=== PATIENT | male | born 1965 | race Caucasian/White ===

== ENCOUNTER 2017-09-05 14:02 | Emergency (ER) | payer BC ==
[~2017-09-05] VITALS: Ht 172.7 cm; Wt 74.8 kg
--- OUTSIDE RECORDS SUMMARY | ~2017-09-05 | XMS | Encounter Summary ---
Demographics + + + | Address | [address] | | | [place] [address] | + + + | Home Phone | | + + + | Preferred Language | Unknown | + + + | Marital Status | | + + + | Presybeterian Affiliation | 1069 | + + + | Race | Unknown | + + + | Ethnic Group | Unknown | + + + Author + + + | Author | [facility] | | | and [place] | + + + | Organization | [facility] | | | and [place] | + + + | Address | Unknown | + + + | Phone | Unavailable | + + + Support + + +---------+ + | Name | Relationship | Address | Phone | + + +---------+ + | ,Joslny | ECON | Unknown | | + + +---------+ + Care Team Providers + +------+ + | Care Diamond Setter Apprentice Name | Role | Phone | + +------+ + | Charly Carrillo MD | PCP | | + +------+ + Encounter Details +--------+ + + + + | Date | Type | Department | Care Team | Description | +--------+ + + + + | 07/07/ | Orders Only | [facility] | Kain Lindo MD | Lumbar radiculopathy | | 2018 | | [address]UR[address]UR[address]ERY [address] | [address] | (Primary Dx); DDD | | | | [address] | [address] [place], [place] | (degenerative disc | | | | [place], [place] | [address] | disease), lumbar, | | | | [address] | | L3-L4,L5-S1; Lumbar | | | | [phone] | | pars defect at L5 | | | | | | bilaterally; | | | | | | Spondylolisthesis of | | | | | | lumbar region; | | | | | | Facet arthritis of | | | | | | lumbar region (HCC); | | | | | | Foraminal stenosis | | | | | | of lumbar region | +--------+ + + + + Social History + +-------+ +--------+------+ | Tobacco Use | Types | Packs/Day | Years | Date | | | | | Used | | + +-------+ +--------+------+ | Former Smoker | | | | | + +-------+ +--------+------+ + +---+---+---+ | Smokeless Tobacco: | | | | | Never Used | | | | + +---+---+---+ + + +---------+ + | Alcohol Use | Drinks/We | oz/Week | Comments | | | ek | | | + + +---------+ + | Yes | | | social | + + +---------+ + + + + | Sex Assigned at | Date Recorded | | | | + + + | Not on file | | + + + as of this encounter Plan of Treatment +--------+ + + + + | Date | Type | Specialty | Care Team | Description | +--------+ + + + + | 09/08/ | Surgery | | Kain Lindo MD | L4-5, L5-S1 ALIF w/ | | 2017 | | | [address] | Posterior Fusion at | | | | | [address] [place], [place] | L4-5, L5-S1 | | | | | [address] | | | | | | | | +--------+ + + + + | 09/08/ | Procedure | | | | | 2017 | Pass | | | | +--------+ + + + + | 09/08/ | Hospital | | Kain Lindo MD | | | 2017 | Encounter | | [address] | | | | | | [address] [place] | | | | | | [address] | | | | | | | | +--------+ + + + + as of this encounter Visit Diagnoses + + | Diagnosis | + + | Lumbar radiculopathy - Primary | + + | Thoracic or lumbosacral neuritis or radiculitis, unspecified | + + | DDD (degenerative disc disease), lumbar, L3-L4,L5-S1 | + + | Degeneration of lumbar or lumbosacral intervertebral disc | + + | Lumbar pars defect at L5 bilaterally | + + | Acquired spondylolisthesis | + + | Spondylolisthesis of lumbar region | + + | Acquired spondylolisthesis | + + | Facet arthritis of lumbar region (HCC) | + + | Lumbosacral spondylosis without myelopathy | + + | Foraminal stenosis of lumbar region | + + | Spinal stenosis, lumbar region, without neurogenic claudication | + +"
--- OUTSIDE RECORDS SUMMARY | ~2017-09-05 | XMS | Encounter Summary ---
Demographics + + + | Address | [address] | | | [place] [address] | + + + | Home Phone [...] Organization | [facility] | | | and [place] | + + + | Address | Unknown | + + + | Phone | Unavailable | + + + Support + + +---------+ + | Name | Relationship | Address | Phone | + + +---------+ + | ,Joslyn | ECON | Unknown | | + + +---------+ + Care Team Providers + +------+ + | Care Hand Tube Bender Name | Role | Phone | + +------+ + | Charly Carrillo MD | PCP | | + +------+ + Reason for Visit + + + | Reason | Comments | + + + | Surgery Appointment | called to schedule surgery | + + + Encounter Details +--------+ + + + + | Date | Type | Department | Care Team | Description | +--------+ + + + + | 07/13/ | Telephone | [facility] | Kain Lindo MD | Surgery Appointment | | 2017 | | [address]UR[address]UR[address]ERY [address] | [address] | (called to schedule | | | | [address] | [address] [place] | surgery) | | | | [place] | [address] | | | | | [address] | | | | | | [phone] | | | +--------+ + + + + Social [...] | | | | | [address] [place] | L4-5, L5-S1 | | | | | [address] | | | | | | | | +--------+ + + + + | 09/08/ | Procedure | | | | | 2017 | Pass | | | | +--------+ + + + + | 09/08/ | Hospital | | Kain Lindo MD | | | 2017 | Encounter | | [address] | | | | | | [address] [place] | | | | | | [address] | | | | | | | | +--------+ + + + + as of this encounter Visit Diagnoses Not on filein this encounter"
--- OUTSIDE RECORDS SUMMARY | ~2017-09-05 | XMS | Encounter Summary ---
Demographics + + + | Address | [address] | | | [place] [address] | + + + | Home Phone | | + + + | Preferred Language | Unknown | + + + | Marital Status | | + + + | Yarsani Affiliation | 1069 | + + + | Race | Unknown | + + + | Ethnic Group | Unknown | + + + Author + + + | Author | [facility] | | | and [place] | + + + | Organization | [facility] | | | and [place] [...] Team Providers + +------+ + | Care Mud Mill Tender Name | Role | Phone | + +------+ + | Charly Carrillo MD | PCP | | + +------+ + Encounter Details +--------+ + + + + | Date | Type | Department | Care Team | Description | +--------+ + + + + | 07/13/ | Episode | [facility] [place] | Lilian Barnhart, | | | 2018 | Changes | NEUROSUR[address]ERY [address] | Cert MARINE | | | | | [address] | | | | | | [place] | | | | | | [address] | | | | | | [phone] | | | +--------+ + + + [...] | 2017 | | | [address] [facility] [address] | Posterior Fusion at | | | | | [address] [place] | L4-5, L5-S1 | | | | | [address] | | | | | | | | +--------+ + + + + | 09/08/ | Procedure | | | | | 2017 | Pass | | | | +--------+ + + + + | 09/08/ | Hospital | | Kain Lindo MD | | | 2017 | Encounter | | [address] [facility] | | | | | | [address] [place] | | | | | | [id number] | | | | | | | | +--------+ + + + + as of this encounter Visit Diagnoses Not on filein this encounter"
--- OUTSIDE RECORDS SUMMARY | ~2017-09-05 | XMS | Encounter Summary ---
Demographics + + + | Address | [address] | | | [place] [address] | + + + | Home Phone | | + + + | Preferred Language | Unknown | + + + | Marital Status | | + + + | Yazidism Affiliation | 1069 | + + + | Race | Unknown | + + + | Ethnic Group | Unknown | + + + Author + + + | Author | [facility] | | | and [place] | + + + | Organization | [facility] | | | and [place] [...] Team Providers + +------+ + | Care Music Manager Name | Role | Phone | + +------+ + PCP | Unavailable | + +------+ + Reason for Visit Auth/Cert +--------+--------+ + + + + | Status | Reason | Specialty | Diagnoses / | Referred By | Referred To | | | | | Procedures | Contact | Contact | +--------+--------+ + + + + | | | | Diagnoses | | | | | | | | | | | | | | Radiculopath | | | | | | | y, lumbar | | | | | | | region | | | | | | | Other | | | | | | | intervertebr | | | | | | | al disc | | | | | | | degeneration | | | | | | | , lumbar | | | | | | | region | | | | | | | Lumbar | | | | | | | radiculopath | | | | | | | y (M54.16), | | | | | | | DDD | | | | | | | (degenerativ | | | | | | | e disc | | | | | | | disease), | | | | | | | lumbar | | | | | | | (M51.36), | | | | | | | Lumbar pars | | | | | | | defect | | | | | | | (M43.06), | | | | | | | Spondylolist | | | | | | | hesis of | | | | | | | lumbar | | | | | | | region | | | | | | | (M43.16), | | | | | | | Facet | | | | | | | arthritis of | | | | | | | lumbar | | | | | | | region (HCC) | | | | | | | (M46.96), | | | | | | | Foraminal | | | | | | | stenosis of | | | | | | | lumbar | | | | | | | region | | | | | | | (M99.83) | | | | | | | Procedures | | | | | | | SD LUMBAR | | | | | | | SPINE | | | | | | | FUSION,ANTER | | | | | | | APPRCH SD | | | | | | | SPINAL | | | | | | | FUSION,ANT,E | | | | | | | A ADNL LEVEL | | | | | | | ANTERIOR | | | | | | | INSTRUMENTAT | | | | | | | ION 2-3 | | | | | | | VERTEBRAL | | | | | | | SEGMENTS SD | | | | | | | INSJ | | | | | | | BIOMCHN DEV | | | | | | | INTERVERTEBR | | | | | | | AL DSC SPC | | | | | | | W/ARTHRD SD | | | | | | | INSJ | | | | | | | BIOMCHN DEV | | | | | | | INTERVERTEBR | | | | | | | AL DSC SPC | | | | | | | W/ARTHRD SD | | | | | | | ARTHRODESIS | | | | | | | | | | | | | | POSTERIOR/PO | | | | | | | STEROLATERAL | | | | | | | LUMBAR SD | | | | | | | SPINE | | | | | | | FUSN,POST | | | | | | | TECH,EA | | | | | | | ADDNL SGMT | | | | | | | SD SPINE | | | | | | | FUSN,POST | | | | | | | TECH,EA | | | | | | | ADDNL SGMT | | | | | | | POSTERIOR | | | | | | | SEGMENTAL | | | | | | | INSTRUMENTAT | | | | | | | ION 3-6 VRT | | | | | | | SEG L4-5, | | | | | | | L5-S1 ALIF | | | | | | | w/ Posterior | | | | | | | Fusion at | | | | | | | L4-5, L5-S1 | | | +--------+--------+ + + + + Encounter Details +--------+ + + + + | Date | Type | Department | Care Team | Description | +--------+ + + + + | 09/08/ | Hospital | [facility] | Kain Lindo MD | | | 2018 | Encounter | [facility] | [address] | | | | | [address] | [address] [place] | | | | | [place] | [address] | | | | | [address] | | | | | | [phone] | | | +--------+ + + + + Social History + + + +--------+ + | Tobacco Use | Types | Packs/Day | Years | Date | | | | | Used | | + + + +--------+ + | Former Smoker | Cigarettes | 0.5 | 3 | Quit: 1997 | + + + +--------+ + + +---+---+---+ | Smokeless Tobacco: | | | | | Never Used | | | | + +---+---+---+ + + +---------+ + | Alcohol Use | Drinks/We | oz/Week | Comments | | | ek | | | + + +---------+ + | Yes | | | one drink a week | + + +---------+ + + + [...] + | 09/08/ | Surgery | | aKin Lindo MD | L4-5, L5-S1 RUDI w/ | | 2018 | | | [address] | Posterior Fusion at | | | | | [address] [place] | L4-5, L5-S1 | | | | | [address] | | | | | | | | +--------+ + + + + | 09/08/ | Procedure | | | | | 2017 | Pass | | | | +--------+ + + + + | 09/08/ | Hospital | | Kain Lindo MD | | | 2017 | Encounter | | [address] | | | | | | [address] [place] | | | | | | [address] | | | | | | | | +--------+ + + + + as of this encounter Visit Diagnoses Not on filein this encounter Admitting Diagnoses + + | Diagnosis | + + | Radiculopathy, lumbar region - Lumbar radiculopathy (M54.16), DDD (degenerative disc | | disease), lumbar (M51.36), Lumbar pars defect (M43.06), Spondylolisthesis of lumbar | | region (M43.16), Facet arthritis of lumbar region (HCC) (M46.96), Foraminal stenosis of | | lumbar region (M99.83) | + + | Other intervertebral disc degeneration, lumbar region | + +"
--- OUTSIDE RECORDS SUMMARY | ~2017-09-05 | XMS | Encounter Summary ---
Demographics + + + | Address | [address] | | | [place] [address] | + + + | Home Phone | | + + + | Preferred Language | Unknown | + + + | Marital Status | | + + + | Confucianism Affiliation | 1069 | + + + | Race | Unknown | + + + | Ethnic Group | Unknown | + + + Author + + + | Author | [facility] | | | and [place] | + + + | Organization | [facility] | | [...] Team Providers + +------+ + | Care Aircraft Seat Upholsterer Name | Role | Phone | + +------+ + | Charly Carrillo MD | PCP | | + +------+ + Encounter Details +--------+ + + + + | Date | Type | Department | Care Team | Description | +--------+ + + + + | 07/08/ | Episode | [facility] | Susan Newman, | | | 2018 | Changes | NEUROSURGERY [address] | Client Services Coordinator | | | | | [address] | | | | | | [place] | | | | | | [address] | | | | | | [phone] | | | +--------+ + + + [...] L4-5, L5-S1 | | | | | [address] | | | | | | | | +--------+ + + + + | 04/25/ | Procedure | | | | | 2017 | Pass | | | | +--------+ + + + + | 09/08/ | Hospital | | Kain Lindo MD | | | 2017 | Encounter | | [address] [facility] | | | | | | [address] [place] | | | | | | [address] | | | | | | | | +--------+ + + + + as of this encounter Visit Diagnoses Not on filein this encounter"
--- OUTSIDE RECORDS SUMMARY | ~2017-09-05 | XMS | Encounter Summary ---
Demographics + + + | Address | [address] | | | [place] [address] | + + + | Home Phone | | + + + | Preferred Language | Unknown | + + + | Marital Status | | + + + | Quaker Affiliation | 1069 | + + + | Race | Unknown | + + + | Ethnic Group | Unknown | + + + Author + + + | Author | [facility] | | | and [place] | + + + | Organization | [facility] | | | and [place] | + + + | Address | Unknown | + + + | Phone | Unavailable | + + + Support + + +---------+ + | Name | Relationship | Address | Phone | + + +---------+ + | ,Joslyn | ECON | Unknown | | + + +---------+ + Care Team Providers + +------+ + | Care Precinct Police Sergeant Name | Role | Phone | + +------+ + | Charly Carrillo MD | PCP | | + +------+ + Reason for Visit + + + | Reason | Comments | + + + | Pre-op Exam | SX: 09/08/17 | + + + Encounter Details +--------+---------+ + + + | Date | Type | Department | Care Team | Description | +--------+---------+ + + + | 08/25/ | Office | [facility] | Ravinder Bolden | DDD (degenerative | | 2018 | Visit | NEUROSURGERY [address] | D, [address] | disc disease), | | | | [address] | [address] | lumbar (Primary Dx); | | | | [place], [place] | [place], [place] | Spondylolisthesis | | | | [phone] | [id number] | of lumbar region; | | | | [phone] | | Facet arthropathy, | | | | | | lumbar (HCC); Lumbar | | | | | | radiculopathy | +--------+---------+ + + + Social History + + + +--------+ + | Tobacco Use | Types | Packs/Day | Years | Date | | | | | Used | | + + + +--------+ + | Former Smoker | Cigarettes | 0.5 | 3 | Quit: 1996 | + + + +--------+ + + [...] + + + as of this encounter Last Filed Vital Signs + + + + | Vital Sign | Reading | Time Taken | + + + + | Blood Pressure | 113/77 | 08/25/2017 1050 PDT | + + + + | Pulse | 50 | 08/25/2017 1050 PDT | + + + + | Temperature | - | - | + + + + | Respiratory Rate | - | - | + + + + | Oxygen Saturation | - | - | + + + + | Inhaled Oxygen | - | - | | Concentration | | | + + + + | Weight | 75 kg (165 lb 5.5 | 08/25/2017 1050 PDT | | | oz) | | + + + + | Height | 175.3 cm (5' 9") | 08/25/2017 1050 PDT | + + + + | Body Mass Index | 24.42 | 08/25/2017 1050 PDT | + + + + in this encounter Progress Notes Feli Moreira RN - 08/25/2017 1030 PDTPatient in office for pre op appointment. Patient advised at this time to stop: ibuprofen (7 days prior/90 days after); multi vits (7 days donald or). Patient verbalized understanding. All questions answered at this time. I Feli Moreira RN witnessed the patient leaving the office with a LSO which was provided by a maintenance representative of [facility]. RONALD Sorensen Nicholas D, PA-C - 08/25/2017 1030 PDTFormatting of this note may be different from the original. Ravinder Bolden PA-C and Ravinder Bolden PA-C [address] [facility], [address] [place] [address] FAX: [phone] NEUROSURGERY FOLLOw-UP CHIEF COMPLAINT: Chief Complaint Patient presents with Pre-op Exam SX: 09/08/17 HISTORY OF PRESENT ILLNESS: The patient is an office today for his preop appointment. He is scheduled for a L4-S1 ALIF with posterior instrumentation. He states that his symptoms h ave been similar since his previous visit. He complains of mechanical motion back pain depe nding on what he is doing. He has failed all conservative treatment options this point over the year. He complains of radicular pains below his knees. He has had no interval changes in the severity or character of his symptoms since his last visit. He denies any shortnes s of breath or chest pain. He denies any fever or chills.He has no open sores on his body a nd has not had any antibiotics recently. The patient is a 52 y.o. male with the complaint of bilateral leg symptoms and intermittent back pain. The patient reports symptoms that began over 1 year ago. Patient was previously seen in our office. He has returned today to review his imaging and his progress and to di jose cuss surgical options. Since the patient was seen last he felt like he was doing fairly we ll. He is off of gabapentin. He had been back to being active and running. He felt like h is leg and back symptoms are significantly improved. But he returns with yet another flare up of symptoms that began 2 days ago. He had pretty significant amount of pain that radiat es from his knee into his anterior blakely into the great toe on the left side. This is simila r to his past and recurrent presentations. At his last visit the patient described bilateral leg pain that is worse and more frequent on left than the right. He describes the pain as traveling down his left leg posterolaterall y down to his knee, with occasional radiation past his knee into his ankle and big toe of th e left foot. The patient reports the pain does some occasionally radiate into the anterior p ortion of his left thigh, but not very often. He reports his symptoms have changed over the last few years and his leg symptoms, at one point, affected his legs equally. The patient st ates when his pain is at it's worse, the pain will radiate into his back and "bites" him. He describes his back pain as low and bilateral, but it is often worse on the left than the ri ght. He reports he does not sleep, and attributes this to his pain level. The patient repor ts he has to sleep on his back or right side, because the pain is intolerable when he attemp ts to sleep on his left side. The patient reports his pain is effecting his active lifestyle . He reports bending over results in increased pain. The patient reports he enjoys riding hi s bike, but throwing his leg over the bike to get on, causes pain. The patient is here today with complaints of pain in his left knee down the anterior blakely o ccasionally into the top of the foot and big toe. This pain started two days ago with no par ticular injury bringing on the pain. He is no longer taking Gabapentin. Patient has had pr evious injections that did provide pain relief although his last one only provided relief f or a short time. 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 He reports he has been working for the [employer] for 20 years. The patient states during his twenty years of service, he has been thrown off horses, rode snowmobiles, and participated in september activities that may have caused wear and tear on his body. 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 The symptoms have been gradually worsening. He rates the pain as moderate-severe. The sym ptoms are continuous. He describes the pain as sharp, numbing, shooting and aching. The pat jitendra reports on some days he does experience an increase in pain/difficulty when walking up hills. He denies any balance issues while ambulating. The patient does not report any change in bowel or bladder function recently. His symptoms improve with rest, changing position, standing and sitting. His symptoms worsen with changing position, bending and twisting. He has tried steroid injections, physical therapy, child care director, and over the counter pain medication such as ibuprofen. The patient is currently only taking 200 mg ibuprofen for treatment of his pain. He states his pain was severe yesterday (05/25/17), which resulted in him taking 6 ibuprofen through out the day. He reports taking the nerve pain medication demetrice pentin in the past, but has discontinued taking the medication.The patient reports previous participation in physical therapy provided him no relief of his symptoms. The patient has del real d three previous injections administered by Dr. Alves, two in 2014 and one more recentl y in July of 2016. He reports only the second injection administered on 09/05/14 provided hi m any relief. The patient reports the injection done on 09/05/14 provided him with a year and half's worth of relief. PAST MEDICAL HISTORY: Past Medical History: Diagnosis Date DDD (degenerative disc disease), lumbar, L3-L4,L5-S1 07/31/2014 Facet arthritis of lumbar region (HCC) 07/31/2014 Facet arthritis of lumbar region (HCC) Foraminal stenosis of lumbar region Lumbar pars defect Lumbar pars defect at L5 bilaterally 07/31/2014 Lumbar radiculopathy 07/31/2014 Seasonal allergies Spondylolisthesis of lumbar region 07/31/2014 Wears contact lenses PAST SURGICAL HISTORY: Past Surgical History: Procedure Laterality Date INGUINAL HERNIA REPAIR Right sometime after 2003 with mesh - Kirstie Thomas. KNEE SURGERY Left 2003 [place] CURRENT MEDICATIONS: Current Outpatient Prescriptions Medication Sig Dispense Refill gabapentin (NEURONTIN) 300 mg capsule Take 1 capsule by mouth 3 times daily. Take one t ablet orally on day 1 Take one tablet orally in the morning and the evening on day two Take one tablet with breakfast, lunch, and dinner daily until instructed otherwise. 90 caps ule 1 ibuprofen (ADVIL, MOTRIN) 200 mg tablet Take 200 mg by mouth every 6 hours as needed fo r Pain. Multiple Vitamins-Minerals (EMERGEN-C IMMUNE) PACK Take 1 packet by mouth Daily as need ed. Multiple Vitamins-Minerals (MULTIVITAMIN PO) Take by mouth. No current facility-administered medications for this visit. ALLERGIES: No Known Allergies SOCIAL HISTORY: The patient reports that he quit smoking about 21 years ago. His smoking use included Ciga rettes. He has a 1.50 pack-year smoking history. He has never used smokeless tobacco. He rep orts that he drinks alcohol. He reports that he does not use drugs. FAMILY HISTORY: Family History Problem Relation Age of Onset Cancer Mother No Known Problems Father No Known Problems Sister No Known Problems Brother Cancer Maternal Grandmother No Known Problems Maternal Grandfather No Known Problems Paternal Grandmother No Known Problems Paternal Grandfather Stroke Other Arthritis Other No Known Problems Child REVIEW OF SYSTEMS GENERALLY: No fever, no night sweats, no anemia, no fatigue, no recent profound weight ch anges. EYES: No eye problems, + use of corrective lenses, no eye injury, no double vision, no bli ndness. EARS, NOSE, AND THROAT: No changes in taste or smell, no hearing difficulty, no ringing in the ears, no ear drainage, no dizziness, no voice changes, no difficulty swallowing, + sign ificant snoring, no sleep apnea, no sinus problems, no major dental work. NEUROLOGICALLY: Please see the review of systems discussed above in the history of present illness. In addition, the patient has numbness/pain of legs, awake with numbness/pain, mya nge in walk. PSYCHIATRIC: No depression, no sleep disorders, no anxiety, no bipolar disorder, no psycho tic episodes. CARDIOVASCULAR: No heart attacks, no heart murmur, no heart fluttering, no chest pain, no ankle swelling. LUNG DISEASE: No shortness of breath, no cough, no tuberculosis, no bloody cough, no asth ma, no emphysema/COPD. GASTROINTESTINAL: No bowel disease, no nausea or vomiting, no rectal bleeding, no constipa tion, no stool incontinence, no liver disease, no gallbladder disease, no abdominal pain, no ulcers. KIDNEY DISEASE: No urinary frequency, no painful or difficult urination, no incontinence. ENDOCRINE: No diabetes, no thyroid disease, no osteopenia or osteoporosis, no breast drain age. SKIN: No breast lumps, no skin changes, no rashes, no itches. HEMATOLOGIC/LYMPHATIC: No enlarged lymph nodes, no easy or unusual bleeding, no personal h istory of cancer. RHEUMATOLOGIC: No joint arthritis, no rheumatoid arthritis. PHYSICAL EXAMINATION: Blood pressure 113/77, pulse 50, height 1.753 m (5' 9"), weight 75 kg (165 lb 5.5 oz). Body mass index is 24.42 kg/m. GENERAL: Prakash Chung is in no acute distress with unlabored respirations. The ignacio ent does not appear uncomfortable throughout the exam today. HEENT: Head: Normocephalic/atraumatic with no areas of recent trauma. Eyes: Normal sclera e without icterus. NECK (ANTERIOR): Supple and without obvious masses. SPINE: There is no midline tenderness of the cervical spine. The is some midline tenderness in the thoracic region of the spine. The lumbar spine shows there is no tenderness in the midline. To palpation, there is significant right myofascial tenderness. There is no significant pain to provacative testing of the SI joint. There is no major deformity noted. EXTREMITIES: No cyanosis, clubbing, or edema. Distal pulses are palpable. NEUROLOGICAL EXAM: MENTAL STATUS: The patient is awake, alert, and oriented. He follows simple and complex commands. His speech is fluent, he comprehends speech well, and he repeats well. He has no apparent deficits with short or superintendent container terminal memory. CRANIAL NERVES: II: Acuity is intact. Real are full to confrontation. III, IV, : The pupils are reactive. Extraocular movements are intact. No ptosis is note d. V: Facial sensation is intact and symmetric. VII: Facial movements are symmetric. VIII: Hearing is intact bilaterally. IX, X: The uvula and palate move appropriately. XI: Shrug is equal bilaterally. XII: Tongue protrusion is midline. MOTOR EXAM: (5 IS NORMAL) * Indicates pain limited MUSCLE/ MOVEMENT: RIGHT LEFT Hip Flexion 5 5 Hip Extension 5 5 Knee Flexion 5 5 Knee Extension 5 5 Dorsiflexion 5 4+ Extensor Hallicus Longus 5 5 Plantarflexion 5 5 SENSORY EXAM: Sensory exam shows diminished sensation to light touch over the front of the left blakely to the foot in between great toe and 2nd toe. REFLEXES: (2 OR 2+ IS NORMAL) REFLEX: RIGHT LEFT BICEPS 2 2 BRACHIORADIALIS 2 2 TRICEPS 2 2 PATELLAR 2 1 ACHILLES 2 2 RESENDIZ'S ABSENT ABSENT PLANTAR DOWNGOING DOWNGOING GAIT: Gait is steady. PERIPHERAL NERVE/MISC: Straight leg raise is negative bilaterally. Thang's test of the hips is negative bilaterally. TEST AND RADIOGRAPHIC REVIEW: The patient's imaging was reviewed in detail with the patient today during the visit. Thoracic MRI shows central canal and foraminal stenosis at T10-11 level with mild T2 signal change showing early signs of myelomalacia. Degenerative changes from T6-T11 The lumbar MRI from 2017 shows multilevel degenerative changes with varying degrees of fora shahrzad stenosis worst at L4-5 and L5-0S1. Lumbar x-rays show anterolisthesis of L5 body with pars defects at L5 bilateral and spondyl olisthesis at L4-5 and L5-S1 ASSESSMENT: NEUROSURGICAL DIAGNOSES: Encounter Diagnoses Name Primary? DDD (degenerative disc disease), lumbar Yes Spondylolisthesis of lumbar region Facet arthropathy, lumbar (HCC) Lumbar radiculopathy GENERAL DIAGNOSES: Past Medical History: Diagnosis Date DDD (degenerative disc disease), lumbar, L3-L4,L5-S1 07/31/2014 Facet arthritis of lumbar region (HCC) 07/31/2014 Facet arthritis of lumbar region (HCC) Foraminal stenosis of lumbar region Lumbar pars defect Lumbar pars defect at L5 bilaterally 07/31/2014 Lumbar radiculopathy 07/31/2014 Seasonal allergies Spondylolisthesis of lumbar region 07/31/2014 Wears contact lenses PLAN: Today we discussed the upcoming surgery and I answered any questions regarding the procedur e and recovery. 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 He spends 100% of his stay behind a desk. He states his job is very flexible and he can w ork from home if needed. We discussed that he can return to work when he feels ready for po stop, as long as he can stay within the restrictions postop. This will not be a problem wit h his current job description. Prakash Chung presented today for re-evaluation of an ongoing back issue and his tanner rologic problems. The patient has spondylolisthesis with varying degrees of foraminal stenosis. Patient also has cord signal change at T10-11. Fortunately, he does not appear to have significant symp toms of myelopathy. His leg symptoms are worsened yet again. The patient has progressive s ymptoms despite non-operative measures. We had a lengthy discussion with the patient about his options for care including surgical and non-surgical options. In discussing the surgical options, we discussed in detail the patient's options for lumbar fusion versus thoracic fusion. As his myelopathy is not thought to be progressive in any w ay. The patient wanted to defer that treatment. We discussed the option for a L4-S1 ALIF with posterior fusion for his pars defects and spo ndylolisthesis. We discussed the risks, alternatives, and benefits to surgical intervention with Mr. Chung in clinic. These risks included but were not limited to , stroke, heart attack, numbne ss, weakness, paralysis, failure of fusion, failure of hardware, subsidence, adjacent segmen t degeneration, cerebrospinal fluid leak, bleeding, infection, injury to surrounding tissues and organs, injury from positioning, injury to the nerves, difficulty with breathing, diffi culty with swallowing, difficulty with voice change, and need for additional surgery. Surgical options were discussed and the technique to be employed was described in detail to him. All his questions were answered. We discussed that the goal of the surgery is to prevent progression of his disease, but it is not considered a cure. We also discussed that although some patients may obtain 100% sym ptom relief, it is realistic to anticipate that some symptoms will continue postoperatively despite a successful surgery. We also discussed that there is no guarantee that surgery will provide improvement in his c ondition, and indeed may even worsen the symptoms. We also discussed that in the course of the procedure the operative plan may be altered to include more, less, or different levels d epending upon findings in order to provide him with the best possible outcome. I am prescribing a brace before surgery to improve his stability now to support his weak mu scles and to reduce pain by restricting mobility. For multiple (more than 1 level) fusions, I am also prescribing a bone growth stimulator po stoperatively. This is to improve the probability and rate of fusion. The patient would like to proceed with L4-S1 ALIF. ELECTRONICALLY SIGNED BY: Ravinder Bolden PA-C, 08/26/2017 12:25 in this encounter Plan of Treatment +--------+ + [...] L4-5, L5-S1 | | | | | [id number] | | | | | | | | +--------+ + + + + | 09/08/ | Procedure | | | | | 2017 | Pass | | | | +--------+ + + + + | 09/08/ | Hospital | | Kain Lindo MD | | | 2017 | Encounter | | [address] [facility] | | | | | | [address] [place] | | | | | | [id number] | | | | | | | | +--------+ + + + + as of this encounter Visit Diagnoses + + | Diagnosis | + + | DDD (degenerative disc disease), lumbar - Primary | + + | Degeneration of lumbar or lumbosacral intervertebral disc | + + | Spondylolisthesis of lumbar region | + + | Acquired spondylolisthesis | + + | Facet arthropathy, lumbar (HCC) | + + | Lumbosacral spondylosis without myelopathy | + + | Lumbar radiculopathy | + + | Thoracic or lumbosacral neuritis or radiculitis, unspecified | + +
--- OUTSIDE RECORDS SUMMARY | ~2017-09-05 | XMS | Encounter Summary ---
Demographics + + + | Address | [address] | | | [place] [address] | + + + | Home Phone | | + + + | Preferred Language | Unknown | + + + | Marital Status | | + + + | Latter Day Affiliation | 1069 | + + + | Race | Unknown | + + + | Ethnic Group | Unknown | + + + Author + + + | Author | [facility] | | | and [place] | + + + | Organization | [facility] | | | and [place] | [...] Team Providers + +------+ + | Care Machine Cutter Name | Role | Phone | + [...] | | | | | | | [place] LUMBAR | | | | | | | SPINE | | | | | | | FUSION,ANTER | | | | | | | APPRCH [place] | | | | | | | [...] | | | | | | SEGMENTS [place] | | | | | | | INSJ | | | | | | | BIOMCHN DEV | | | | | | | INTERVERTEBR | | | | | | | AL DSC SPC | | | | | | | W/ARTHRD [place] | | | | | | | INSJ | | | | | | | BIOMCHN DEV | | | | | | | INTERVERTEBR | | | | | | | AL DSC SPC | | | | | | | W/ARTHRD [place] | | | | | | | ARTHRODESIS | | | | | | | | | | | | | | POSTERIOR/PO | | | | | | | STEROLATERAL | | | | | | | LUMBAR [place] | | | | | | | SPINE | | | | | | | FUSN,POST | | | | | | | TECH,EA | | | | | | | ADDNL SGMT | | | | | | | [place] SPINE | | | | | | [...] +--------+--------+ + + + + Encounter Details +--------+---------+ + + + | Date | Type | Department | Care Team | Description | +--------+---------+ + + + | 09/08/ | Surgery | [facility] | Kain Lindo MD | L4-5, L5-S1 ALIF w/ | | 2017 | | [facility] OP | [address] | Posterior Fusion at | | | | [address] | [address] [place], [place] | L4-5, L5-S1 | | | | [place], [place] | [address] | | | | | [address] | | | | | | [phone] | | | +--------+---------+ + + + Social History [...] L4-5, L5-S1 | | | | | [id number] | | | | | | | [...] [place] | | | | | | [address] | | | | | | | [...]
--- OUTSIDE RECORDS SUMMARY | ~2017-09-05 | XMS | Encounter Summary ---
Demographics + + + | Address | [address] | | | [place] [address] | + + + | Home Phone | | + + + | Preferred Language | Unknown | + + + | Marital Status | | + + + | Mormon Affiliation | 1069 | + + + | Race | Unknown | + + + | Ethnic Group | Unknown | + + + Author + + + | Author | [facility] | | | and [place] | + + + | Organization | [facility] | | | and [place] | [...] Team Providers + +------+ + | Care Business Solutions Architect Name | Role | Phone | + [...] [place] | | | | | | [address] | | | | | | [phone] | | | +--------+ + + + [...] | 2017 | | | [address] [facility] [address] | Posterior Fusion at | | | | | [address] | L4-5, L5-S1 | | | | | [address] | | | | | | | | +--------+ + + + + | 09/08/ | Procedure | | | | | 2017 | Pass | | | | +--------+ + + + + | 09/08/ | Hospital | | Kain Lindo MD | | | 2017 | Encounter | | [address] [facility] | | | | | | [address] | | | | | | [id number] | | | | | | | | +--------+ + + + + as of this encounter Visit Diagnoses Not on filein this encounter"
--- OUTSIDE RECORDS SUMMARY | ~2017-09-05 | XMS | Encounter Summary ---
Demographics + + + | Address | [address] | | | [place] [address] | + + + | Home Phone | | + + + | Preferred Language | Unknown | + + + | Marital Status | | + + + | Denominational Affiliation | 1069 | + + + | Race | Unknown | + + + | Ethnic Group | Unknown | + + + Author + + + | Author | [facility] | | | and [place] | + + + | Organization | [facility] | | | and [place] [...] Team Providers + +------+ + | Care Web Press Operator Assistant Name | Role | Phone | + +------+ + | Charly Carrillo MD | PCP | | + +------+ + Encounter Details +--------+ + + + + | Date | Type | Department | Care Team | Description | +--------+ + + + + | 08/25/ | [facility] | [facility] | Kain Lindo MD | Lumbar | | 2018 | Encounter | MED CTR XRAY [address] | [address] | radiculopathy; DDD | | | | [place] | [address] [place] | (degenerative disc | | | | [place] [address] | [address] | disease), lumbar, | | | | [phone] | | L3-L4,L5-S1; Lumbar | | | | | Nabor Mendez MD | pars defect at L5 | | | | | [address] | bilaterally; | | | | | [place] | Spondylolisthesis of | | | | | [address] | lumbar region; | | | | [...] + + + as of this encounter Medications at Time of Discharge + + +---------+---------+ + + | Medication | Sig. | Disp. | Refills | Start | End Date | | | | | | Date | | + + +---------+---------+ + + | gabapentin | Take 1 capsule by | 90 | 1 | 05/26/19 | | | (NEURONTIN) 300 mg | mouth 3 times daily. | capsule | | 18 | | | capsule | Take one tablet | | | | | | | orally on day 1Take | | | | | | | one tablet orally in | | | | | | | the morning and the | | | | | | | evening on day | | | | | | | twoTake one tablet | | | | | | | with breakfast, | | | | | | | lunch, and dinner | | | | | | | daily until | | | | | | | instructed | | | | | | | otherwise. | | | | | + + +---------+---------+ + + | ibuprofen (ADVIL, | Take 200 mg by mouth | | | | | | MOTRIN) 200 mg | every 6 hours as | | | | | | tablet | needed for Pain. | | | | | + + +---------+---------+ + + | Multiple | Take 1 packet by | | | | | | Vitamins-Minerals | mouth Daily as | | | | | | (EMERGEN-C IMMUNE) | needed. | | | | | | PACK | | | | | | + + +---------+---------+ + + | Multiple | Take by mouth. | | | | | | Vitamins-Minerals | | | | | | | (MULTIVITAMIN PO) | | | | | | + + +---------+---------+ + + as of this encounter Plan [...] L4-5, L5-S1 | | | | | [address] | | | | | | | [...] [place] | | | | | | [address] | | | | | | | | +--------+ + + + + as of this encounter Results XR Chest PA and Lateral (08/25/2017 0956) + + | Narrative | + + | XR CHEST PA AND LATERAL 08/25/2017 9:47 AM HISTORY: Pre-op. COMPARISON: None. | | Findings: Heart size is within normal limits. Aorta is normal. Mediastinum is | | unremarkable. Central pulmonary vasculature is normal. The bilateral lungs are clear | | with no evidence for pleural effusion or pneumothorax. There is moderate spondylosis. | | IMPRESSION - No acute findings. Dictated and Signed by: Marshall Michaels MD | | Electronically signed: 08/25/2017 10:02 AM | + + + + | Procedure Note | + + | Chandra, Rad Results In - 08/25/2017 1005 PDT XR CHEST PA AND LATERAL 08/25/2017 9:47 AM | | | | HISTORY: Pre-op. | | | | COMPARISON: None. | | | | Findings: | | Heart size is within normal limits. Aorta is normal. Mediastinum is | | unremarkable. Central pulmonary vasculature is normal. The bilateral lungs are | | clear with no evidence for pleural effusion or pneumothorax. There is moderate | | spondylosis. | | | | IMPRESSION - | | No acute findings. | | | | Dictated and Signed by: Marshall Michaels MD | | Electronically signed: 08/25/2017 10:02 AM | + + in this encounter Visit Diagnoses + + | Diagnosis | + + | Lumbar radiculopathy | [...] lumbar region, without neurogenic claudication | + + Admitting Diagnoses + + | Diagnosis | + + | Preoperative clearance | + + | Preoperative examination, unspecified | + +"
--- OUTSIDE RECORDS SUMMARY | ~2017-09-05 | XMS | Encounter Summary ---
Demographics + + + | Address | [address] | | | [place] [address] | + + + | Home Phone | | + + + | Preferred Language | Unknown | + + + | Marital Status | | + + + | Latter-Day Affiliation | 1069 | + + + | Race | Unknown | + + + | Ethnic Group | Unknown | + + + Author + + + | Author | [facility] | | | and [place] | + + + | Organization | [facility] | | | and [place] [...] Team Providers + +------+ + | Care Core Worker Name | Role | Phone | + +------+ + | Charly Carrillo MD | PCP | | + +------+ + Encounter Details +--------+ + + + + | Date | Type | Department | Care Team | Description | +--------+ + + + + | 08/25/ | [facility] | [facility] | Kain Lindo MD | Lumbar | | 2018 | Encounter | MED CTR XRAY [address] | [address] | radiculopathy; DDD | | | | [place] | [address] [place] | (degenerative disc | | | | [place] [address] | [address] | disease), lumbar, | | | | [phone] | | L3-L4,L5-S1; Lumbar | | | | | Nabor Mendez MD | pars defect at L5 | | | | | [address] | bilaterally; | | | | | [place] | Spondylolisthesis of | | | | | [address] | lumbar region; | | | | [...] L4-5, L5-S1 | | | | | [address] | | | | | | | [...] [place] | | | | | | [address] | | | | | | | [...]
--- OUTSIDE RECORDS SUMMARY | ~2017-09-05 | XMS | Encounter Summary ---
Demographics + + + | Address | [address] | | | [place] [address] | + + + | Home Phone | | + + + | Preferred Language | Unknown | + + + | Marital Status | | + + + | Roman Catholic Affiliation | 1069 | + + + | Race | Unknown | + + + | Ethnic Group | Unknown | + + + Author + + + | Author | [facility] | | | and [place] | + + + | Organization | [facility] | | | and [...] Team Providers + +------+ + | Care Field Marketing Representative Name | Role | Phone | + [...] | (degenerative disc | | | | [place], [place] | [address] | disease), lumbar, | | | | [address] | | L3-L4,L5-S1; Lumbar | | | | [phone] | | pars defect at L5 | [...] L4-5, L5-S1 | | | | | [address] | | | | | | | [...] [place] | | | | | | [address] | | | | | | | [...]
--- OUTSIDE RECORDS SUMMARY | ~2017-09-05 | XMS | Encounter Summary ---
Demographics + + + | Address | [address] | | | [place] [address] | + + + | Home Phone | | + + + | Preferred Language | Unknown | + + + | Marital Status | | + + + | Latter-Day Affiliation | 1069 | + + + | Race | Unknown | + + + | Ethnic Group | Unknown | + + + Author + + + | Author | [facility] | | | and [place] | + + + | Organization | [facility] | | | and [place] [...] Team Providers + +------+ + | Care Television Production Assistant Name | Role | Phone | + +------+ + | Charly Carrillo MD | PCP | | + +------+ + Reason for Visit + + + | Reason | Comments | + + + | Follow-up | Discuss surgical options | + + + Encounter Details +--------+---------+ + + + | Date | Type | Department | Care Team | Description | +--------+---------+ + + + | 07/07/ | Office | [facility] | Kain Lindo MD | Lumbar radiculopathy | | 2018 | Visit | NEUROSURGERY [address] | [address] | (Primary Dx); | | | | [address] | [address] | Spondylolisthesis of | | | | [place], [place] | [address] | lumbar region; | | | | [address] | | Lumbar pars defect | | | | [phone] | Eldon Calderon | at L5 bilaterally; | | | | | [address] | Foraminal stenosis | | | | | [address] | of lumbar region; | | | | | [place], [place] | Facet arthritis of | | | | | [address] | lumbar region (HCC) | | | | | | | +--------+---------+ + + + Social History + +-------+ [...] + + + | Blood Pressure | 132/77 | 07/07/2017 1059 PST | + + + + | Pulse | 48 | 07/07/2017 1059 PST | + + + + | Temperature | - | - | + + + + | Respiratory Rate | - | - | + + + + | Oxygen Saturation | - | - | + + + + | Inhaled Oxygen | - | - | | Concentration | | | + + + + | Weight | 74.6 kg (164 lb 7.4 | 07/07/2017 1059 PST | | | oz) | | + + + + | Height | 175.3 cm (5' 9") | 07/07/2017 1059 PST | + + + + | Body Mass Index | 24.29 | 07/07/2017 1059 PST | + + + + in this encounter Progress Notes Eldon Calderon PA-C - 07/07/2017 1045 PSTFormatting of this note may be different fr om the original. Eldon Calderon PA-C and Kain Lindo MD [address] [place] [address], [address] [place], [place] [address] FAX: [phone] NEUROSURGERY FOLLOw-UP CHIEF COMPLAINT: Chief Complaint Patient presents with Follow-up Discuss surgical options HISTORY OF PRESENT ILLNESS: The patient is a 52 y.o. male with the complaint of bilateral leg symptoms and intermittent back pain. The patient reports symptoms that began over 1 year ago. Patient was previously seen in our office. He has returned today to review his imagi ng and his progress and to discuss surgical options. Since the patient was seen last he fel t like he was doing fairly well. He is off of gabapentin. He had been back to being active and running. He felt like his leg and back symptoms are significantly improved. But he re turns with yet another flare up of symptoms that began 2 days ago. He had pretty significa nt amount of pain that radiates from his knee into his anterior blakely into the great toe on t he left side. This is similar to his past and recurrent presentations. 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 He reports he has been working for the [employer] for 20 years. The patient states during [...] sharp, numbing, shooting and aching. The pat iehank reports on some days he does experience an increase in pain/difficulty when walking up hills. He denies any balance issues while ambulating. The patient does not report any change in bowel or bladder function recently. His symptoms improve with rest, changing position, standing and sitting. His symptoms worsen with changing position, bending and twisting. He has tried steroid injections, physical therapy, personal caregiver, and over the counter pain medication such [...] at L5 bilaterally 07/31/2014 Lumbar radiculopathy 07/31/2014 Spondylolisthesis of lumbar region 07/31/2014 PAST SURGICAL HISTORY: Past Surgical History: Procedure Laterality Date HERNIA REPAIR Kirstie Thomas. KNEE SURGERY 2003 Kirstie Thomas CURRENT MEDICATIONS: Current Outpatient Prescriptions Medication Sig Dispense Refill gabapentin (NEURONTIN) 300 mg capsule Take 1 capsule by mouth 3 times daily. Take one t ablet orally on day 1 Take one tablet orally in the morning and the evening on day two Take one tablet with breakfast, lunch, and dinner daily until instructed otherwise. (Patien t not taking: Reported on 07/07/2017) 90 capsule 1 ibuprofen (ADVIL, MOTRIN) 200 mg tablet Take 200 mg by mouth every 6 hours as needed fo r Pain. Multiple Vitamins-Minerals (MULTIVITAMIN PO) Take by mouth. No current facility-administered medications for this visit. ALLERGIES: No Known Allergies SOCIAL HISTORY: The patient reports that he has quit smoking. He has never used smokeless tobacco. He repo rts that he drinks alcohol. He reports that [...] weight ch anges. EYES: No eye problems, no use of corrective lenses, no eye injury, no double vision, no bl indness. EARS, NOSE, AND THROAT: No changes in taste or smell, no hearing difficulty, no ringing in the ears, no ear drainage, no dizziness, no voice changes, no difficulty swallowing, no sig nificant snoring, no sleep apnea, no sinus problems, no major dental work. NEUROLOGICALLY: Please see the review of systems discussed above in the history of present illness. In addition, the patient has numbness/pain of legs, awake with numbness/pain, wea kness, and change in walk. PSYCHIATRIC: No depression, no sleep [...] no rheumatoid arthritis. PHYSICAL EXAMINATION: Blood pressure 132/77, pulse (!) 48, height 1.753 m (5' 9"), weight 74.6 kg (164 lb 7.4 oz) . Body mass index is 24.29 kg/m. GENERAL: Prakash Chung is in no [...] has no apparent deficits with short or senior care memory. CRANIAL NERVES: II: Acuity is intact. [...] ASSESSMENT: NEUROSURGICAL DIAGNOSES: Encounter Diagnoses Name Primary? 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 The patient would like to seek authorization for surgery. ELECTRONICALLY SIGNED BY: Eldon Calderon PA-C and Kain Lindo MD, 07/07/2017 11:35 I, Eldon Calderon PA-C, personally performed the services described in this documentation , as scribed by Angeles Witt RN in my presence, and it is both accurate and complete. Eldon Calderon PA-C 07/07/2017 in this encounter Plan of Treatment +--------+ + + + + | Date | Type | Specialty | Care Team | Description | +--------+ + + + + | 09/08/ | Surgery | | Kain Lindo MD | L4-5, L5-S1 ALIF w/ | | 2017 | | | [address] | Posterior Fusion at | | | | | [address] | L4-5, L5-S1 | | | | | [address] | | | | | | | [...] [place] | | | | | | [address] | | | | | | | | +--------+ + + + + as of this encounter Visit Diagnoses + + | Diagnosis | + + | Lumbar radiculopathy - Primary | + + | Thoracic or lumbosacral neuritis or radiculitis, unspecified | + + | Spondylolisthesis of lumbar region | + + | Acquired spondylolisthesis | + + | Lumbar pars defect at L5 bilaterally | + + | Acquired spondylolisthesis | + + | Foraminal stenosis of lumbar region | + + | Spinal stenosis, lumbar region, without neurogenic claudication | + + | Facet arthritis of lumbar region (HCC) | + + | Lumbosacral spondylosis without myelopathy | + +
--- OUTSIDE RECORDS SUMMARY | ~2017-09-05 | XMS | Encounter Summary ---
Demographics + + + | Address | [address] | | | [place] [address] | + + + | Home Phone | | + + + | Preferred Language | Unknown | + + + | Marital Status | | + + + | Taoism Affiliation | 1069 | + + + | Race | Unknown | + + + | Ethnic Group | Unknown | + + + Author + + + | Author | [facility] | | | and [place] | + + + | Organization | [facility] | | | and [place] | [...] Team Providers + +------+ + | Care Poultry Vaccinator Name | Role | Phone | + [...] [place] | | | | | | [address] | | | | | | [phone] | | | +--------+ + + + [...] | 2017 | | | [address] [facility] [address] | Posterior Fusion at | | | | | [address] [place] | L4-5, L5-S1 | | | | | [address] | | | | | | | | +--------+ + + + + | 09/08/ | Procedure | | | | | 2017 | Pass | | | | +--------+ + + + + | 09/08/ | Hospital | | Kain Lindo MD | | | 2017 | Encounter | | [address] [facility] | | | | | | [address] [place] | | | | | | [id number] | | | | | | | | +--------+ + + + + as of this encounter Visit Diagnoses Not on filein this encounter"
--- OUTSIDE RECORDS SUMMARY | ~2017-09-05 | XMS | Encounter Summary ---
Demographics + + + | Address | [address] | | | [place] [address] | + + + | Home Phone | | + + + | Preferred Language | Unknown | + + + | Marital Status | | + + + | Faith Affiliation | 1069 | + + + | Race | Unknown | + + + | Ethnic Group | Unknown | + + + Author + + + | Author | [facility] | | | and [place] | + + + | Organization | [facility] | | | and [place] [...] Team Providers + +------+ + | Care Speed Runner Name | Role | Phone | + +------+ + | Charly Carrillo MD | PCP | | + +------+ + Encounter Details +--------+ + + + + | Date | Type | Department | Care Team | Description | +--------+ + + + + | 08/25/ | Preadmit | [facility] | Kain Lindo MD | Preoperative | | 2018 | Visit | MED CTR [facility] | [address] | clearance (Primary | | | | CLINIC [address] | [address] [place] | Dx); Lumbar | | | | [place] | [address] | radiculopathy; DDD | | | | [address] | | (degenerative disc | | | | [phone] | | disease), lumbar, | | | | | | L3-L4,L5-S1; Lumbar | | | | | | pars defect at L5 | | | | | | bilaterally; | | | | | | Spondylolisthesis of | | | | | | lumbar region; | | | | | | Facet arthritis of | | | | | | lumbar region ([facility]); | | | | | | Foraminal [...] | | | | [address] | L4-5, L5-S1 | | | | | [address] | | | | | | | [...] [place] | | | | | | [address] | | | | | | | | +--------+ + + + + as of this encounter Results Culture, MRSA (08/25/2017 0943) + + + + | Component | Value | Ref Range | + + + + | Culture | Negative for MRSA by chromogenic agar | | | | method | | + + + + | Culture | 3+ Staphylococcus coagulase positive | | + + + + + + + | Specimen | Performing Laboratory | + + + | Respiratory - Nares | [facility] [address] | | | [place] [address] | + + + CBC with Differential (08/25/201742) + +-------+ + | Component | Value | Ref Range | + +-------+ + | WBC | 6.3 | 4.0 - 11.0 K/uL | + +-------+ + | RBC | 5.19 | 4.30 - 5.70 M/uL | + +-------+ + | Hgb | 15.4 | 13.5 - 18.0 g/dL | + +-------+ + | Hct | 46.7 | 40.0 - 51.0 % | + +-------+ + | MCV | 89.9 | 83.0 - 101.0 fL | + +-------+ + | MCH | 29.6 | 28.0 - 35.0 pg | + +-------+ + | MCHC | 32.9 | 32.0 - 36.0 g/dL | + +-------+ + | RDW-CV | 13.2 | <15.0 % | + +-------+ + | Platelet Count | 209 | 140 - 440 K/uL | + +-------+ + | MPV | 9.8 | fL | + +-------+ + | % Neutrophils | 62.7 | 45.0 - 82.0 % | + +-------+ + | % Lymphocytes | 23.8 | 20.0 - 45.0 % | + +-------+ + | % Monocytes | 10.8 | 4.0 - 12.0 % | + +-------+ + | % Eosinophils | 2.0 | 0.0 - 5.0 % | + +-------+ + | % Basophils | 0.7 | 0.0 - 1.0 % | + +-------+ + | Absolute Neutrophils | 4.00 | 1.80 - 8.50 K/uL | + +-------+ + | Absolute Lymphocytes | 1.50 | 0.60 - 3.20 K/uL | + +-------+ + | Absolute Monocytes | 0.70 | 0.00 - 1.00 K/uL | + +-------+ + | Absolute Eosinophils | 0.10 | 0.00 - 0.40 K/uL | + +-------+ + | Absolute Basophils | 0.00 | 0.00 - 0.10 K/uL | + +-------+ + + + + | Specimen | Performing Laboratory | + + + | Blood | [facility] [address] | | | [place] [address] | + + + Basic Metabolic Panel (08/25/201742) + + + + | Component | Value | Ref Range | + + + + | NA | 138 | 136 - 149 mmol/L | + + + + | K | 3.9 | 3.5 - 5.1 mmol/L | + + + + | CL | 109 | 98 - 109 mmol/L | + + + + | CO2 | 26 | 24 - 31 mmol/L | + + + + | ANION GAP | 3 | 3 - 16 mmol/L | + + + + | GLUCOSE | 95 | 70 - 109 mg/dL | + + + + | BUN | 12 | 7 - 18 mg/dL | + + + + | Creatinine, | 0.95 | 0.60 - 1.30 mg/dL | | Serum/Plasma | | | + + + + | eGFR if not | >60Comment: GLOMERULAR FILTRATION | >=60 mL/min/1.73m2 | | CHINESE | RATE,ESTIMATED mL/min/1.87w7Mzim than | | | | 60 Chronic kidney disease,if found over | | | | a 3-month period.Less than 15 Kidney | | | | failureFor Americans,multiply the | | | | calculated GFR by 1.21. | | | | | | | | | | + + + + | CALCIUM | 9.4 | 8.3 - 10.5 mg/dL | + + + + | BUN/CREA | 12.6 | | + + + + + + + | Specimen | Performing Laboratory | + + + | Blood | [facility] [address] | | | [place] [address] | + + + ECG 12 lead (08/25/2017 0936) + + +------ -----+ | Component | Value | Ref R moreno | + + +------ -----+ | VENTRICULAR RATE EKG | 56 | BPM | + + +------ -----+ | ATRIAL RATE | 56 | BPM | + + +------ -----+ | P-R INTERVAL | 172 | ms | + + +------ -----+ | QRS DURATION | 96 | ms | + + +------ -----+ | Q-T INTERVAL | 406 | ms | + + +------ -----+ | Q-T INTERVAL | 391 | ms | | (CORRECTED) | | | + + +------ -----+ | P WAVE AXIS | 50 | degre es | + + +------ -----+ | QRS AXIS | 63 | degre es | + + +------ -----+ | T AXIS | 25 | degre es | + + +------ -----+ | INTERPRETATION TEXT | Sinus bradycardiaOtherwise normal ECGNo | | | | previous ECGs availableConfirmed by CAROLINA | | | | MARIO ALBERTO LANGLEY ([id number]) on 08/26/2017 7:12:44 AM | | | |Confirmed by MARIO ALBERTO FIGUEROA MD ([id number]) on 08/26/2017 7:12:44 AM | | | | | | + + +------ -----+ + + + | Specimen | Performing Laboratory | + + + | | [facility] | + + + in this encounter Visit Diagnoses + + | Diagnosis | + + | Preoperative clearance - Primary | + + | Preoperative examination, unspecified | + + | Lumbar radiculopathy | [...]
--- OUTSIDE RECORDS SUMMARY | ~2017-09-05 | XMS | Encounter Summary ---
Demographics + + + | Address | [address] | | | [place] [address] | + + + | Home Phone | | + + + | Preferred Language | Unknown | + + + | Marital Status | | + + + | Synagogue Affiliation | 1069 | + + + | Race | Unknown | + + + | Ethnic Group | Unknown | + + + Author + + + | Author | [facility] | | | and [place] | + + + | Organization | [facility] | | | and [place] [...] Team Providers + +------+ + | Care Commission Clerk Name | Role | Phone | + [...] | Office | [facility] | Kain Lindo MD | Lumbar radiculopathy | | 2018 | Visit | NEUROSURGERY [address] | [address] | (Primary Dx); | | | | [address] | [address] | Spondylolisthesis of | | | | [place], [place] | [address] | lumbar region; | | | | [address] | | Lumbar pars defect | | | | [phone] | Eldon Calderon | at L5 bilaterally; | | | | | [address] | Foraminal stenosis | | | | | [address] | of lumbar region; | | | | | [place], [place] | Facet arthritis of | | | | | [address] | lumbar region (HCC) | | | [...] om the original. 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 He reports he has been working for the [employer] for 20 years. The patient states during [...] He has tried steroid injections, physical therapy, resident care director, and over the counter pain [...] has no apparent deficits with short or half-way memory. CRANIAL NERVES: II: Acuity is intact. [...] L4-5, L5-S1 | | | | | [address] | | | | | | | [...] [place] | | | | | | [address] | | | | | | | [...]
--- OUTSIDE RECORDS SUMMARY | ~2017-09-05 | XMS | Encounter Summary ---
Demographics + + + | Address | [address] | | | [place] [address] | + + + | Home Phone | | + + + | Preferred Language | Unknown | + + + | Marital Status | | + + + | Scientology Affiliation | 1069 | + + + | Race | Unknown | + + + | Ethnic Group | Unknown | + + + Author + + + | Author | [facility] | | | and [place] | + + + | Organization | [facility] | | | and [place] [...] Team Providers + +------+ + | Care Cupola Melter Name | Role | Phone | + +------+ + PCP | Unavailable | + +------+ + Encounter Details +--------+ + + + + | Date | Type | Department | Care Team | Description | +--------+ + + + + | 09/08/ | Procedure | [facility] | | | | 2018 | Pass | MED CTR OR INTRA OP | | | | | | [address] | | | | | | [place] | | | | | | [address] | | | | | | [phone] | | | +--------+ + + + [...] | 2017 | | | [address] [facility] [address] | Posterior Fusion at | | | | | [address] [place] | L4-5, L5-S1 | | | | | [address] | | | | | | | | +--------+ + + + + | 09/08/ | Procedure | | | | | 2017 | Pass | | | | +--------+ + + + + | 09/08/ | Hospital | | Kain Lindo MD | | | 2017 | Encounter | | [address] [facility] | | | | | | [address] [place] | | | | | | [id number] | | | | | | | | +--------+ + + + + as of this encounter Visit Diagnoses Not on filein this encounter"
--- OUTSIDE RECORDS SUMMARY | ~2017-09-05 | XMS | Encounter Summary ---
Demographics + + + | Address | [address] | | | [place] [address] | + + + | Home Phone | | + + + | Preferred Language | Unknown | + + + | Marital Status | | + + + | Mu-Ism Affiliation | 1069 | + + + | Race | Unknown | + + + | Ethnic Group | Unknown | + + + Author + + + | Author | [facility] | | | and [place] | + + + | Organization | [facility] | | | and [place] | [...] Team Providers + +------+ + | Care International Affairs Vice President Name | Role | Phone | + [...] | | | | | | | [place] LUMBAR | | | | | | | SPINE | | | | | | | FUSION,ANTER | | | | | | | APPRCH [place] | | | | | | | [...] | | | | | | [place] | | | | | | | INSJ | | | | | | | BIOMCHN DEV | | | | | | | INTERVERTEBR | | | | | | | AL DSC SPC | | | | | | | W/ARTHRD [place] | | | | | | | INSJ | | | | | | | BIOMCHN DEV | | | | | | | INTERVERTEBR | | | | | | | AL DSC SPC | | | | | | | W/ARTHRD [place] | | | | | | | ARTHRODESIS | | | | | | | | | | | | | | POSTERIOR/PO | | | | | | | STEROLATERAL | | | | | | | LUMBAR [place] | | | | | | | SPINE | | | | | | | FUSN,POST | | | | | | | TECH,EA | | | | | | | ADDNL SGMT | | | | | | | [place] SPINE | | | | | | [...] + + | 09/08/ | Surgery | [facility] | Kain Lindo MD | L4-5, L5-S1 ALIF w/ | | 2017 | | MED CTR OR INTRA OP | [address] | Posterior Fusion at | | | | [address] | [address] [place] | L4-5, L5-S1 | | | | [place], [place] | [address] | | | | | [address] | | | | | | [phone] | | | +--------+---------+ + + + [...] L4-5, L5-S1 | | | | | [address] | | | | | | | [...] [place] | | | | | | [address] | | | | | | | [...]
--- OUTSIDE RECORDS SUMMARY | ~2017-09-05 | XMS | Encounter Summary ---
Demographics + + + | Address | [address] | | | [place] [address] | + + + | Home Phone | | + + + | Preferred Language | Unknown | + + + | Marital Status | | + + + | Quaker Affiliation | 1069 | + + + | Race | Unknown | + + + | Ethnic Group | Unknown | + + + Author + + + | Author | [facility] | | | and [place] | + + + | Organization | [facility] | | | and [place] | [...] Team Providers + +------+ + | Care Educational Programming Director Name | Role | Phone | + +------+ + | Charly Carrillo MD | PCP | | + +------+ + Reason for Referral Evaluate & Treat (Routine) +--------+ + + + + + | Status | Reason | Specialty | Diagnoses / | Referred By | Referred To | | | | | Procedures | Contact | Contact | +--------+ + + + + + | Closed | Specialty | General | Diagnoses | Kain Lindo | , | | | Services | Surgery | Lumbar | MD [address] | Harrison Dueñas, | | | Required | | radiculopath | [address] | MD FACS [address] | | | | | y DDD | [address] | | | | | (degenerativ | [place], | [place], | | | | | e disc | [place] [address] | [place] [address] | | | | | disease), | Phone: | Phone: | | | | | lumbar | [phone] | [phone] | | | | | Lumbar pars | Fax: | Fax: | | | | | defect | [phone] | [phone] | | | | | Spondylolist | [...] | | | region | | | +--------+ + + + + + Encounter Details +--------+ + + + + | Date | Type | Department | Care Team | Description | +--------+ + + + + | 02/27/ | Orders Only | [facility] [place] | Kain Lindo MD | Lumbar radiculopathy | | 2018 | | NEUROSURGERY [address] | [address] | (Primary Dx); DDD | | | | [address] | [address] [place], [place] | (degenerative disc | | | | [place] | [address] | disease), lumbar, | | | | [address] | | L3-L4,L5-S1; Lumbar | | | | [phone] | | pars defect at L5 | [...] L4-5, L5-S1 | | | | | [address] | | | | | | | | +--------+ + + + + | 09/08/ | Procedure | | | | | 2017 | Pass | | | | +--------+ + + + + | 09/08/ | Hospital | | Kain Lindo MD | | | 2017 | Encounter | | [address] | | | | | | [address] [place] | | | | | | [address] | | | | | | | | +--------+ + + + + + +--------+ + + | Name | Priori | Associated Diagnoses | Order Schedule | | | ty | | | + +--------+ + + | * [facility] General Surgery - AMB | Routin | Lumbar | Ordered: 07/13/2017 | | Referral | e | radiculopathy DDD | | | | | (degenerative disc | | | | | disease), lumbar, | | | | | L3-L4,L5-S1 Lumbar | | | | | pars defect at L5 | | | | | bilaterally | | | | | Spondylolisthesis of | | | | | lumbar region | | | | | Facet arthritis of | | | | | lumbar region | | | | | Foraminal stenosis | | | | | of lumbar region | | + +--------+ + + as of this encounter Visit [...]
--- OUTSIDE RECORDS SUMMARY | ~2017-09-05 | XMS | Encounter Summary ---
Demographics + + + | Address | [address] | | | [place] [address] | + + + | Home Phone | | + + + | Preferred Language | Unknown | + + + | Marital Status | | + + + | Anabaptism Affiliation | 1069 | + + + | Race | Unknown | + + + | Ethnic Group | Unknown | + + + Author + + + | Author | [facility] | | | and [place] | + + + | Organization | [facility] | | | and [place] [...] Team Providers + +------+ + | Care Rating Specialist Name | Role | Phone | + +------+ + PCP | Unavailable | + +------+ + Encounter Details +--------+ + + + + | Date | Type | Department | Care Team | Description | +--------+ + + + + | 09/08/ | Procedure | [facility] | | | | 2018 | Pass | MED CTR OR INTRA OP | | | | | | [address] | | | | | | [place] | | | | | | [address] | | | | | | [phone] | | | +--------+ + + + [...] | 2017 | | | [address] [facility] [address] | Posterior Fusion at | | | | | [address] | L4-5, L5-S1 | | | | | [address] | | | | | | | | +--------+ + + + + | 09/08/ | Procedure | | | | | 2017 | Pass | | | | +--------+ + + + + | 09/08/ | Hospital | | Kain Lindo MD | | | 2017 | Encounter | | [address] [facility] | | | | | | [address] [place] | | | | | | [address] | | | | | | | | +--------+ + + + + as of this encounter Visit Diagnoses Not on filein this encounter"
--- OUTSIDE RECORDS SUMMARY | ~2017-09-05 | XMS | Clinical Summary ---
Demographics + + + | Address | [address] | | | [place] [address] | + + + | Home Phone | | + + + | Preferred Language | Unknown | + + + | Marital Status | | + + + | Mormon Affiliation | 1069 | + + + | Race | Unknown | + + + | Ethnic Group | Unknown | + + + Author + + + | Author | [facility] | | | and [place] | + + + | Organization | [facility] | | | and [place] [...] Team Providers + +------+ + | Care Accounting Office Manager Name | Role | Phone | + +------+ + | Charly Carrillo MD | PP | | + +------+ + Allergies No Known Allergies Current Medications + + +---------+---------+------+------+-------+ | Prescription | Sig. | Disp. | Refills | Star | End | Statu | | | | | | t | Date | s | | | | | | Date | | | + + +---------+---------+------+------+-------+ | Multiple | Take by mouth. | | | | | Activ | | Vitamins-Minerals | | | | | | e | | (MULTIVITAMIN PO) | | | | | | | + + +---------+---------+------+------+-------+ | ibuprofen (ADVIL, | Take 200 mg by mouth | | | | | Activ | | MOTRIN) 200 mg | every 6 hours as | | | | | e | | tablet | needed for Pain. | | | | | | + + +---------+---------+------+------+-------+ | gabapentin | Take 1 capsule by | 90 | 1 | 01/ | | Activ | | (NEURONTIN) 300 mg | mouth 3 times daily. | capsule | | 0/20 | | e | | capsule | Take one tablet | | | 18 | | | | | orally on [...] | otherwise. | | | | | | + + +---------+---------+------+------+-------+ | Multiple | Take 1 packet by | | | | | Activ | | Vitamins-Minerals | mouth Daily as | | | | | e | | (EMERGEN-C IMMUNE) | needed. | | | | | | | PACK | | | | | | | + + +---------+---------+------+------+-------+ Active Problems + + + | Problem | Noted Date | + + + | Lumbar radiculopathy | 07/31/2014 | + + + | DDD (degenerative disc disease), lumbar, L3-L4,L5-S1 | 07/31/2014 | + + + | Lumbar pars defect at L5 bilaterally | 07/31/2014 | + + + | Spondylolisthesis | 07/31/2014 | + + + | Facet arthritis of lumbar region (HCC) | 07/31/2014 | + + + | Foraminal stenosis of lumbar region | 07/31/2014 | + + + Encounters +--------+ + + + + | Date | Type | Specialty | Care Team | Description | +--------+ + + + + | 08/25/ | Office | | Ravinder Bolden | DDD (degenerative | | 2018 | Visit | | MANUEL HealyC | disc disease), | | | | | | lumbar (Primary Dx); | | | | | | Spondylolisthesis | | | | | | of lumbar region; | | | | | | Facet arthropathy, | | | | | | lumbar (HCC); Lumbar | | | | | | radiculopathy | +--------+ + + + + | 08/25/ | Hospital | | Kain Lindo MD | Lumbar | | 2018 | Encounter | | Mario Alberto Figueroa MD | radiculopathy; DDD | | | | | | (degenerative disc | | | | | | disease), lumbar, [...] | | | | | lumbar region ([facility]); | | | | | | Foraminal stenosis | | | | | | of lumbar region | +--------+ + + + + | 08/25/ | Preadmit | | Kain Lindo MD | Preoperative | | 2018 | Visit | | | clearance (Primary | | | | | | Dx); Lumbar | | | | | | radiculopathy; DDD | | | | | | (degenerative disc | | | | | | disease), lumbar, [...] | | | | | lumbar region ([facility]); | | | | | | Foraminal stenosis | | | | | | of lumbar region | +--------+ + + + + | 08/18/ | Office | | Kain Lindo MD | Lumbar radiculopathy | | 2017 | Visit | | Harrison Rodriguez I, | (Primary Dx); DDD | | | | | DAV LANGLEY | (degenerative disc | | | | | | disease), lumbar; | | | | | | Lumbar pars defect; | | | | | | Spondylolisthesis of | | | | | | lumbar region; | | | | | | Facet arthritis of | | | | | | lumbar region ([facility]); | | | | | | Foraminal stenosis | | | | | | of lumbar region | +--------+ + + + + | 08/17/ | Abstract | | Tyler, | | | 2017 | | | MD Kym | | +--------+ + + + + | 07/14/ | Orders Only | | Kain Lindo MD | Lumbar radiculopathy | | 2017 | | | | (Primary Dx); DDD | | | | | | (degenerative disc | | | | | | disease), lumbar, [...] region | +--------+ + + + + | 07/14/ | Episode | | Susan Newman, | | | 2017 | Changes | | Research Librarian | | +--------+ + + + + | 07/13/ | Episode | | Lilian Barnhart, | | | 2017 | Changes | | Mack HAWTHORNE | | +--------+ + + + + | 07/13/ | Telephone | | Kain Lindo MD | Surgery Appointment | | 2017 | | | | (called to schedule | | | | | | surgery) | +--------+ + + + + | 07/13/ | Episode | | Lilian Barnhart, | | | 2017 | Changes | | Cert MA | | +--------+ + + + + | 07/13/ | Orders Only | | Kain Lindo MD | Lumbar radiculopathy | | 2017 | | | | (Primary Dx); DDD | | | | | | (degenerative disc | | | | | | disease), lumbar, [...] | | | | | lumbar region ([facility]); | | | | | | Foraminal stenosis | | | | | | of lumbar region | +--------+ + + + + | 07/08/ | Episode | | Lilian Barnhart, | | | 2017 | Changes | | Cert MA | | +--------+ + + + + | 07/08/ | Episode | | Susan Newman, | | | 2017 | Changes | | Research Librarian | | +--------+ + + + + | 07/07/ | Office | | Kain Lindo MD | Lumbar radiculopathy | | 2017 | Visit | | Eldon Calderon | (Primary Dx); | | | | | CHENTE Levin | Spondylolisthesis of | | | | | | lumbar region; | | | | | | Lumbar pars defect | | | | | | at L5 bilaterally; | | | | | | Foraminal stenosis | | | | | | of lumbar region; | | | | | | Facet arthritis of | | | | | | lumbar region ([facility]) | +--------+ + + + + | 07/07/ | Orders Only | | Kain Lindo MD | Lumbar radiculopathy | | 2017 | | | | (Primary Dx); DDD | | | | | | (degenerative disc | | | | | | disease), lumbar, [...] | | | | | lumbar region ([facility]); | | | | | | Foraminal stenosis | | | | | | of lumbar region | +--------+ + + + + | 07/06/ | Telephone | | Kain Lindo MD | Appointment | | 2018 | | | | (Reschedule) | +--------+ + + + + from Last 3 Months Family History + + +------+ + | Medical History | Relation | Name | Comments | + + +------+ + | No Known Problems | Brother | | | + + +------+ + | No Known Problems | Child | | | + + +------+ + | No Known Problems | Father | | | + + +------+ + | No Known Problems | Maternal | | | | | Grandfath | | | | | er | | | + + +------+ + | Cancer | Maternal | | | | | Grandmoth | | | | | er | | | + + +------+ + | Cancer | Mother | | | + + +------+ + | Arthritis | Other | | | + + +------+ + | Stroke | Other | | | + + +------+ + | No Known Problems | Paternal | | | | | Grandfath | | | | | er | | | + + +------+ + | No Known Problems | Paternal | | | | | Grandmoth | | | | | er | | | + + +------+ + | No Known Problems | Sister | | | + + +------+ + + +------+ + + | Relation | Name | Status | Comments | + +------+ + + | Brother | | | | + +------+ + + | Child | | | | + +------+ + + | Father | | | | + +------+ + + | Maternal Grandfather | | | | + +------+ + + | Maternal Grandmother | | | Cancer | | | | (Age | | | | | 83) | | + +------+ + + | Mother | | Alive | | + +------+ + + | Other | | | | + +------+ + + | Paternal Grandfather | | | | + +------+ + + | Paternal Grandmother | | | | + +------+ + + | Sister | | | | + +------+ + + Social History + + + [...] on file | | + + + Last Filed Vital Signs + + + + | Vital Sign | Reading | Time Taken | + + + + | Blood Pressure | 113/77 | 08/25/2017 1050 PDT | + + + + | Pulse | 50 | 08/25/20171049 PDT | + + + + | Temperature | 36.3 C (97.4 F) | 08/18/2017938 PDT | + + + + | Respiratory Rate | - | - | + + + + | Oxygen Saturation | 97% | 08/18/2017938 PDT | + + + + | Inhaled Oxygen | - | - | | Concentration | | | + + + + | Weight | 75 kg (165 lb 5.5 | 08/25/20171049 PDT | | | oz) | | + + + + | Height | 175.3 cm (5' 9") | 08/25/2017 1050 PDT | + + + + | Body Mass Index | 24.42 | 08/25/2017 1050 PDT | + + + + Plan of Treatment +--------+ + + + [...] L4-5, L5-S1 | | | | | 235032 | | | | | | | [...] [place] | | | | | | [address] | | | | | | | | +--------+ + + + + + + + + + | Health Maintenance | Due Date | Last Done | Comments | + + + + + | Hepatitis C | | | | | Screening | 5 | | | + + + + + | Vaccine: | | | | | Dtap/Tdap/Td (1 - | 4 | | | | Tdap) | | | | + + + + + | COLON CANCER | | | | | SCREENING | 5 | | | | (COLONOSCOPY EVERY | | | | | 10 YEARS 50-75) | | | | + + + + + | Vaccine: Influenza | | | | | (Season Ended) | 8 | | | + + + + + Results XR Chest PA and Lateral (08/25/2017 [...] signed: 08/25/2017 10:02 AM | + + Culture, MRSA (08/25/2017 0943) + + + [...] + + | Respiratory - Nares | [facility] | | | [place] [address] | + + + CBC with Differential [...] | + + + | Blood | [facility] | | | [place] [address] | + + + Basic Metabolic Panel [...] GLOMERULAR FILTRATION | >=60 mL/min/1.73m2 | | BELIZEAN | RATE,ESTIMATED mL/min/1.22o5Ztek than | | | | 60 Chronic [...] + + + | Blood | [facility] [place] [facility] | | | [place] [address] | + + + ECG 12 lead [...] | | | | MARIO ALBERTO LANGLEY ([id number]) on 08/26/2017 7:12:44 AM | | | |Confirmed by MARIO ALBERTO FIGUEROA MD ([id number]) on 08/26/2017 7:12:44 AM | | | | | | + + +------ -----+ + + + | Specimen | Performing Laboratory | + + + | | [facility] | + + + from Last 3 Months Insurance +-------+--------+ +------+-------+---------+ | Payer | Benefi | Subscriber | Type | Phone | Address | | | t Plan | ID | | | | | | / | | | | | | | Group | | | | | +-------+--------+ +------+-------+---------+ | BCBS | BCBS | xxxxxxxxx | PPO | | | | | [place] | | | | | | | L FEP | | | | | +-------+--------+ +------+-------+---------+ + +--------+ +--------+ + + | Guarantor Name | Accoun | Relation to | Date | Phone | Billing Address | | | t Type | Patient | of | | | | | | | | | | + +--------+ +--------+ + + | KAREEM RODRIGUEZ | Person | Self | [birth year] | 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
--- OUTSIDE RECORDS SUMMARY | ~2017-09-05 | XMS | Encounter Summary ---
Demographics + + + | Address | [address] | | | [place] [address] | + + + | Home Phone | | + + + | Preferred Language | Unknown | + + + | Marital Status | | + + + | Islam Affiliation | 1069 | + + + | Race | Unknown | + + + | Ethnic Group | Unknown | + + + Author + + + | Author | [facility] | | | and [place] | + + + | Organization | [facility] | | | and [place] [...] Team Providers + +------+ + | Care Mobile Home Lot Utility Worker Name | Role | Phone | [...] | Changes | NEUROSURGERY [address] | [employer] | | | | | [address] | | | | | | [place] | | | | | | [address] | | | | | | [phone] | | | +--------+ + + + [...] L4-5, L5-S1 | | | | | [address] | | | | | | | | +--------+ + + + + | 04/25/ | Procedure | | | | | 2017 | Pass | | | | +--------+ + + + + | 09/08/ | Hospital | | Kain Lindo MD | | | 2017 | Encounter | | [address] [facility] | | | | | | [address] [place] | | | | | | [address] | | | | | | | | +--------+ + + + + as of this encounter Visit Diagnoses Not on filein this encounter"
--- OUTSIDE RECORDS SUMMARY | ~2017-09-05 | XMS | Encounter Summary ---
Demographics + + + | Address | [address] | | | [place] [address] | + + + | Home Phone | | + + + | Preferred Language | Unknown | + + + | Marital Status | | + + + | Jehovah'S Witness Affiliation | 1069 | + + + | Race | Unknown | + + + | Ethnic Group | Unknown | + + + Author + + + | Author | [facility] | | | and [place] | + + + | Organization | [facility] | | | and [place] [...] Team Providers + +------+ + | Care Bus Girl Name | Role | Phone | + [...] | | | e disc | [place] [address] | [place] [address] | | | | | disease), | Phone: | Phone: | | | | | lumbar | [phone] | [phone] | | | | | Lumbar pars | Fax: | Fax: | | | | | defect | [phone] | [phone] | | | | | Spondylolist | [...] | (degenerative disc | | | | [place], [place] | [address] | disease), lumbar, | | | | [address] | | L3-L4,L5-S1; Lumbar | | | | [phone] | | pars defect at L5 | [...] L4-5, L5-S1 | | | | | [address] | | | | | | | [...] [place] | | | | | | [address] | | | | | | | | +--------+ + + + + + +--------+ + + | Name | Priori | Associated Diagnoses | Order Schedule | | | ty | | | + +--------+ + + | * [facility] General Surgery - AMB | Routin | [...]
--- OUTSIDE RECORDS SUMMARY | ~2017-09-05 | XMS | Encounter Summary ---
Demographics + + + | Address | [address] | | | [place] [address] | + + + | Home Phone | | + + + | Preferred Language | Unknown | + + + | Marital Status | | + + + | Anabaptist Affiliation | 1069 | + + + | Race | Unknown | + + + | Ethnic Group | Unknown | + + + Author + + + | Author | [facility] | | | and [place] | + + + | Organization | [facility] | | | and [place] [...] Team Providers + +------+ + | Care Track Helper Name | Role | Phone | + +------+ + | Charly Carrillo MD | PCP | | + +------+ + Reason for Visit + + + | Reason | Comments | + + + | Appointment | Reschedule | + + + Encounter Details +--------+ + + + + | Date | Type | Department | Care Team | Description | +--------+ + + + + | 07/06/ | Telephone | [facility] [place] | Kain Lindo MD | Appointment | | 2018 | | NEUROSURGERY [address] | [address] | (Reschedule) | | | | [address] | [address] [place], [place] | | | | | [place], [place] | [address] | | | | | [address] | | | | | | [phone] | | | +--------+ + + + [...] | Kain Lindo MD | L4-5, L5-S1 RUDI w/ | | 2018 | | | [address] | Posterior Fusion at | | | | | [address] [place] | L4-5, L5-S1 | | | | | [address] | | | | | | | [...] [place] | | | | | | [address] | | | | | | | | +--------+ + + + + as of this encounter Visit Diagnoses Not on filein this encounter"
--- OUTSIDE RECORDS SUMMARY | ~2017-09-05 | XMS | Encounter Summary ---
Demographics + + + | Address | [address] | | | [place] [address] | + + + | Home Phone | | + + + | Preferred Language | Unknown | + + + | Marital Status | | + + + | Rastafarian Affiliation | 1069 | + + + | Race | Unknown | + + + | Ethnic Group | Unknown | + + + Author + + + | Author | [facility] | | | and [place] | + + + | Organization | [facility] | | | and [place] [...] Team Providers + +------+ + | Care Database Dba Name | Role | Phone | + +------+ + | Charly Carrillo MD | PCP | | + +------+ + Reason for Visit + + + | Reason | Comments | + + + | New Patient | L4-S1 ALIF | + + + Evaluate & Treat (Routine) +--------+ + + + + + | Status | Reason | Specialty | Diagnoses / | Referred By | Referred To | | | | | Procedures | Contact | Contact | +--------+ + + + + + | Closed | Specialty | General | Diagnoses | Kain Lindo | Field, | | | Services | Surgery | Lumbar | MD [address] | Harrison Dueñas, | | | Required | | radiculopath | [address] | , FACS [address] | | | | | y DDD | [address] | [address] | | | | | (degenerativ | [place], | [place], | | | | | [place] disc | [place] [address] | [place] [address] | | | | | disease), | Phone: | Phone: | | | | | lumbar | [phone] | [phone] | | | | | Lumbar pars | Fax: | Fax: | | | | | defect | [phone] | [phone] | | | | | Spondylolist | [...] + + + + + Encounter Details +--------+---------+ + + + | Date | Type | Department | Care Team | Description | +--------+---------+ + + + | 08/18/ | Office | [facility] | Kain Lindo MD | Lumbar radiculopathy | | 2018 | Visit | SURGERY [address] | [address] | (Primary Dx); DDD | | | | [place], [place] | [address] [place], [place] | (degenerative disc | | | | [address] | [address] | disease), lumbar; | | | | [phone] | | Lumbar pars defect; | | | | | Harrison Chung I, | Spondylolisthesis of | | | | | , FACS [address] | lumbar region; | | | | | ST [place], [place] | Facet arthritis of | | | | | [address] | lumbar region (HCC); | | | | | | Foraminal stenosis | | | | | | of lumbar region | +--------+---------+ + + + Social History + +-------+ +--------+ + | Tobacco Use | Types | Packs/Day | Years | Date | | | | | Used | | + +-------+ +--------+ + | Former Smoker | | | | Quit: 1997 | + +-------+ +--------+ + + +---+---+---+ | Smokeless Tobacco: [...] + + + | Blood Pressure | 96/54 | 08/18/2017938 PDT | + + + + | Pulse | 55 | 08/18/2017938 PDT | + + + [...] + + + + | Weight | 76.3 kg (168 lb 3.4 | 08/18/2017938 PDT | | | oz) | | + + + + | Height | 175.3 cm (5' 9") | 08/18/2017938 PDT | + + + + | Body Mass Index | 24.84 | 08/18/2017938 PDT | + + + + in this encounter Progress Notes Harrison Chung MD, FACS - 08/18/2017929 PDTFormatting of this note may be different from the original. Surgery Note Referring Provider: Kain Lindo MD HISTORY OF PRESENT ILLNESS Prakash Chung is a 52 y.o. male patient of Charly Carrillo MD here today for darlene luation of anterior approach to spinal surgery. Physician notes: Patient is here to consult on anterior approach to spinal surgery. He is scheduled to under go a L4-5, L5-S1 ALIF with posterior fusion at L4-S1 on 09/08/[address] Lindo. No prior back or abodminal surgeries. Patient states he is able to have an erection. He reports normal bowel movements, denies co nstipation. States he takes ibuprofen daily for pain, yesterday he took two 200mg ibuprofen last night and again this morning. 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 CARDIAC: Denies [place], chest pain or tightness. RISK: Former smoker , no diabetes. JASON: 3 JASON Risk Score 08/18/2017 Risk for Obstructive Sleep Apnea Suspected Risk for JASON Data: MRI THORACIC SPINE WO CONTRAST 08/28/2016 9:50 AM FINDINGS: Vertebral body height are preserved. There is mild to moderate spondylosis. Moderate disc narrowing are seen from T5-6 through T10-11. Disc desiccation are noted from T1-2 through T10-11. There is mild high T2 signal in the central shah matter of the thoracic spinal cord at level T10-11 consistent with myelomalacia likely from degenerative disc disease. T1-2 through T5-6: No significant stenosis. T6-7: A 3 mm posterior disc bulge is observed leading to mild central stenosis with AP dimension the canal measuring 10 mm. Mild left neural foraminal canal stenosis is seen. T7-8: A 3 mm posterior disc bulge is observed leading to mild central stenosis with AP dimension the canal measuring 10 mm. Mild bilateral neural foraminal canal stenoses are seen. T8-9: A 5 mm posterior disc bulge is observed along with mild facet hypertrophy and ligamentum flavum hypertrophy leading to moderate central stenosis with AP dimension of the canal measuring 8 mm. Moderate right and mild left neural foraminal canal stenoses are present. T9-10: A 3 mm posterior disc bulge is observed along with moderate facet hypertrophy and ligamentum flavum hypertrophy. There is moderate central stenosis with AP dimension of the canal measuring 8 mm. Moderate to severe right and moderate left neural foraminal canal stenoses are seen. T10-11: A 4 mm posterior disc bulge is present along with moderate facet hypertrophy and ligamentum flavum hypertrophy. There is moderate to severe central stenosis with AP dimension of the canal measuring 7 mm. Moderate to severe bilateral neural foraminal canal stenoses are noted. T11-12 through T12-L1: No significant stenosis. Imaged chest and upper abdomen demonstrate no acute findings. IMPRESSION - Degenerative changes from T6-7 through T10-11 most significant at T10-11 with moderate to severe central and neural foramina canal stenoses. Additional moderate central stenoses are observed at T8-9 and T9-10 and mild central stenoses are at T6-7 and T7-8. Multilevel neural foraminal canal stenoses are noted as well including moderate to severe right neural foramina canal stenosis at T9-10. Mild high T2 signal in the central sahh matter of the thoracic spinal cord at level T10-11 consistent with myelomalacia likely from degenerative disc disease. Dictated and Signed by: Marshall Michaels MD Electronically signed: 08/28/2016 11:21 AM Charly Carrillo MD's notes were reviewed in clinic today. 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 KNEE SURGERY 2003 [facility] Allergies: No Known Allergies Medications: Outpatient Encounter Prescriptions as of 08/18/2017 Medication Sig Dispense Refill gabapentin (NEURONTIN) 300 [...] Vitamins-Minerals (MULTIVITAMIN PO) Take by mouth. No facility-administered encounter medications on file as of 08/18/2017. 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 Social History Main Topics Smoking status: Former Smoker Quit date: 1996 Smokeless tobacco: Never Used Alcohol use Yes Comment: social Drug use: No Sexual activity: Yes Other Topics Concern None Social History Narrative None REVIEW OF SYSTEMS: General: []Weight loss/gain (over 10 lbs) []Fever/chills []Night sweats Hematologic: []Bleeding/brusing tendencies []Blood transfusion []Anemia Heent: []Vision loss []Hearing loss []Sinus problems/nose bleeds []Hoarseness Respiratory: []Wheezing []Shortness of breath []Cough []Spitting up blood []On oxygen []Use CPAP machine Cardiac: []Chest pain []Palpitations/heart racing []Swelling of ankles/hands []Unusual shortness of breath []Difficulty sleeping flat Gastrointestinal: []Nausea/vomiting []Difficulty swallowing []Heartburn []Loss of appetite []Abdominal pain []Stomach Ulcers []Diarrhea []Constipation []Otto k or bloody stools Vascular: []Strokes/TIAs []Fainting []Difficulty with speech []Leg cramps [x]Pain in feet/legs at rest []Foot ulcers/s ores []Varicose veins []Phlebitis/blood clots Musculoskeletal: []Joint stiffness/swelling []Joint pain []Back pain []Arthritis []Gout Urologic: []Blood in urine []Frequent urination at night []Burning/painful urination []Kidney stones []Difficulty urination []Sexual difficulties Neuro/Psychiatric: []Headaches []Seizures []Depression []Anxiety attacks []Memory loss or confusion PHYSICAL EXAM BP 96/54 | Pulse 55 | Temp 36.3 C (97.4 F) (Temporal) | Ht 1.753 m (5' 9") | Wt 76. 3 kg (168 lb 3.4 oz) | SpO2 97% | BMI 24.84 kg/m Body mass index is 24.84 kg/m. General Appearance: Alert, cooperative, no distress, appears stated age Head: Normocephalic, without obvious abnormality Eyes: PERRL, conjunctiva/corneas clear, EOM's intact, vision adequate bilateral Ears: Adequate hearing Nose: No visible lesions Throat: Lips, mucosa, and tongue normal; teeth and gums normal. Lungs: Breath sounds are clear to auscultation bilaterally, no wheezes or crackles. Chest Wall: No tenderness or deformity, No pacemaker Heart: Regular rate and rhythm, S1, S2 normal, no murmur. Abdomen: Soft, non-tender, flat, No scars, no hernia in supine position. Extremities: Extremities normal, atraumatic, no cyanosis, clubbing, or edema Palpable Pulses*: Femoral Popliteal Dorsalis pedis Post tibial LEFT 2 2 2 RIGHT 2 2 2 Neurologic: Cranial nerves II-XII grossly intact, face symmetric, tongue protrudes midline Equal social services assistant and plantar flexion, no pronator drift, Gait normal Deep tendon reflexes RIGHT 2, LEFT 1. Assessment Prakash was seen today for new patient. 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 Lindo. Risks and possible complications including bleeding, infection, sexual dysfunction, injury to arteries, veins, bowels, ureter, and nerves (dysesthesia, retrograde ejaculation), unf oreseen complications, life-threatening events and even was explained. No guarantees given or implied. Patient understands and wishes to proceed. Bowel prep instructions reviewed with patient by RN, written instructions provided to patie nt. Surgery is scheduled on 09/08/2017. Follow up with Dr. Lindo's office Post op. Harrison Chung MD, FACS Vascular and General Surgery I Argelia Downs am acting as a scribe on behalf of, and in the presence of Harrison villafana MD, FACS. I have reviewed and edited this note. Argelia Dwons CMA 08/18/17 I, Harrison Chung MD, FACS, personally performed the services described in this docume ntation, as scribed by Argelia Downs CMA in my presence, and it is both accurate and complet e. Argelia B. Ines, TRANSFER CAR OPERATOR 08/18/2017 11:08 CC: Charly Carrillo MD, Kain Lindo MDin this encounter Plan of Treatment +--------+ + [...] L4-5, L5-S1 | | | | | [id number] | | | | | | | | +--------+ + + + + | 09/08/ | Procedure | | | | | 2017 | Pass | | | | +--------+ + + + + | 09/08/ | Hospital | | Kain Lindo MD | | | 2017 | Encounter | | [address] [facility] | | | | | | [address] [place] [place] | | | | | | [address] | | | | | | | | +--------+ + + + + as of this encounter Visit Diagnoses + + | Diagnosis | + + | Lumbar radiculopathy - Primary | + + | Thoracic or lumbosacral neuritis or radiculitis, unspecified | + + | DDD (degenerative disc disease), lumbar | + + | Degeneration of lumbar or lumbosacral intervertebral disc | + + | Lumbar pars defect | + + | Acquired spondylolisthesis | [...]
--- OUTSIDE RECORDS SUMMARY | ~2017-09-05 | XMS | Encounter Summary ---
Demographics + + + | Address | [address] | | | [place] [address] | + + + | Home Phone | | + + + | Preferred Language | Unknown | + + + | Marital Status | | + + + | Jain Affiliation | 1069 | + + + | Race | Unknown | + + + | Ethnic Group | Unknown | + + + Author + + + | Author | [facility] | | | and [place] | + + + | Organization | [facility] | | [...] Team Providers + +------+ + | Care Chief Data Officer Name | Role | Phone | + +------+ + | Charly Carrillo MD | PCP | | + +------+ + Encounter Details +--------+ + + + + | Date | Type | Department | Care Team | Description | +--------+ + + + + | 07/14/ | Episode | [facility] [place] | Susan Newman, | | | 2018 | Changes | NEUROSURGERY [address] | Naphthalene Operator Helper | | | | | [address] | | | | | | [place] | | | | | | [address] | | | | | | [phone] | | | +--------+ + + + [...] L4-5, L5-S1 | | | | | [address] | | | | | | | | +--------+ + + + + | 04/25/ | Procedure | | | | | 2017 | Pass | | | | +--------+ + + + + | 09/08/ | Hospital | | Kain Lindo MD | | | 2017 | Encounter | | [address] [facility] | | | | | | [address] [place] | | | | | | [address] | | | | | | | | +--------+ + + + + as of this encounter Visit Diagnoses Not on filein this encounter"
--- OUTSIDE RECORDS SUMMARY | ~2017-09-05 | XMS | Encounter Summary ---
Demographics + + + | Address | [address] | | | [place] [address] | + + + | Home Phone | | + + + | Preferred Language | Unknown | + + + | Marital Status | | + + + | Mandaeism Affiliation | 1069 | + + + | Race | Unknown | + + + | Ethnic Group | Unknown | + + + Author + + + | Author | [facility] | | | and [place] | + + + | Organization | [facility] | | | and [...] Team Providers + +------+ + | Care Bullet Lubricant Mixer Name | Role | Phone | + +------+ + | Charly Carrillo MD | PCP | | + +------+ + Encounter Details +--------+ + + + + | Date | Type | Department | Care Team | Description | +--------+ + + + + | 08/25/ | Preadmit | [facility] | Kain Lindo MD | Preoperative | | 2018 | Visit | [facility] | [address] | clearance (Primary | | | | CLINIC [address] | [address] [place] | Dx); Lumbar | | | | [place] | [id number] | radiculopathy; DDD | | | | [address] | | (degenerative disc | | | | [phone] | | disease), lumbar, | | | | | | L3-L4,L5-S1; Lumbar | | | | | | pars defect at L5 | | | | | | bilaterally; | | | | | | Spondylolisthesis of | | | | | | lumbar region; | | | | | | Facet arthritis of | | | | | | lumbar region ([facility]); | | | | | [...] L4-5, L5-S1 | | | | | [address] | | | | | | | [...] [place] | | | | | | [address] | | | | | | | [...] + | Respiratory - Nares | [facility] [address] | | | [place] [address] | + + + CBC with Differential [...] | + + + | Blood | [facility] [address] | | | [place] [address] | + + + Basic Metabolic Panel [...] GLOMERULAR FILTRATION | >=60 mL/min/1.73m2 | | SCOTTISH | RATE,ESTIMATED mL/min/1.79b6Jgfb than | | | | 60 Chronic [...] + + + | Blood | [facility] [address] | | | [place] [address] | + + + ECG 12 lead [...] | | | | MARIO ALBERTO LANGLEY ([id number]) on 08/26/2017 7:12:44 AM | | | |Confirmed by MARIO ALBERTO FIGUEROA MD ([id number]) on 08/26/2017 7:12:44 AM | | | [...]
--- OUTSIDE RECORDS SUMMARY | ~2017-09-05 | XMS | Clinical Summary ---
Demographics + + + | Address | [address] | | | [place] [address] | + + + | Home Phone | | + + + | Preferred Language | Unknown | + + + | Marital Status | | + + + | Samaritan Affiliation | 1069 | + + + | Race | Unknown | + + + | Ethnic Group | Unknown | + + + Author + + + | Author | [facility] | | | and [place] | + + + | Organization | [facility] | | [...] Team Providers + +------+ + | Care Pourer Name | Role | Phone | + [...] | | | | | lumbar region ([facility]); | | | | | [...] | | | | | lumbar region ([facility]); | | | | | [...] | | | | | lumbar region ([facility]); | | | | | [...] | | 2017 | Changes | | Commanding Officer Garage | | +--------+ + + + + [...] | | | | | lumbar region ([facility]); | | | | | [...] | | 2017 | Changes | | Commanding Officer Garage | | +--------+ + + + + [...] | | | | | lumbar region ([facility]) | +--------+ + + + [...] | | | | | lumbar region ([facility]); | | | | | [...] L4-5, L5-S1 | | | | | [address] | | | | | | | [...] [place] | | | | | | [address] | | | | | | | [...] + | Respiratory - Nares | [facility] [address] | | | [place] [address] | + + + CBC with Differential [...] | + + + | Blood | [facility] | | | [place] [address] | + + + Basic Metabolic Panel [...] GLOMERULAR FILTRATION | >=60 mL/min/1.73m2 | | UKRAINIAN | RATE,ESTIMATED mL/min/1.27e0Zapx than | | | | 60 Chronic [...] + + + | Blood | [facility] [address] | | | [place] [address] | + + + ECG 12 lead [...] | | | | MARIO ALBERTO LANGLEY ([id number]) on 08/26/2017 7:12:44 AM | | | |Confirmed by MARIO ALBERTO FIGUEROA MD ([id number]) on 08/26/2017 7:12:44 AM | | | [...] | | al/Fam | | 1965 | [phone] | [place] [address] | | | helene | | | [address]: | | | | | | | | | | | | | | [phone] | | | | | | [phone] | | + +--------+ +--------+ + +
--- OUTSIDE RECORDS SUMMARY | ~2017-09-05 | XMS | Encounter Summary ---
Demographics + + + | Address | [address] | | | [place] [address] | + + + | Home Phone | | + + + | Preferred Language | Unknown | + + + | Marital Status | | + + + | Cheondoism Affiliation | 1069 | + + + | Race | Unknown | + + + | Ethnic Group | Unknown | + + + Author + + + | Author | [facility] | | | and [place] | + + + | Organization | [facility] | | | and [place] [...] Team Providers + +------+ + | Care Guest Services Agent Name | Role | Phone | + [...] + + | 08/25/ | Office | [facility] | Ravinder Bolden | DDD (degenerative | | 2018 | Visit | NEUROSURGERY [address] | [address], [address] | disc disease), | | | | [address] | [address] | lumbar (Primary Dx); | | | | [place], [place] | [place], [place] | Spondylolisthesis | | | | [address] | [address] | of lumbar region; | | | | [phone] | | Facet arthropathy, | | | [...] a LSO which was provided by a service representative of [facility]. RONALD Sorensen Nicholas D, PA-C - 08/25/2017 1030 PDTFormatting of this note may be different from the original. 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 He reports he has been working for the [employer] for 20 years. The patient states during [...] He has tried steroid injections, physical therapy, career education teacher, and over the counter pain medication such [...] - Kirstie Thomas. KNEE SURGERY Left [place] CURRENT MEDICATIONS: Current Outpatient Prescriptions Medication Sig [...] has no apparent deficits with short or intermediate designer memory. CRANIAL NERVES: II: Acuity is intact. [...] and recovery. 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 He spends 100% of his stay behind [...] L4-5, L5-S1 | | | | | [address] | | | | | | | | +--------+ + + + + | 09/08/ | Procedure | | | | | 2017 | Pass | | | | +--------+ + + + + | 09/08/ | Hospital | | Kain Lindo MD | | | 2017 | Encounter | | [address] [facility] | | | | | | [address] [place] | | | | | | [address] | | | | | | | [...]
--- OUTSIDE RECORDS SUMMARY | ~2017-09-05 | XMS | Encounter Summary ---
Demographics + + + | Address | [address] | | | [place] [address] | + + + | Home Phone | | + + + | Preferred Language | Unknown | + + + | Marital Status | | + + + | Episcopalian Affiliation | 1069 | + + + | Race | Unknown | + + + | Ethnic Group | Unknown | + + + Author + + + | Author | [facility] | | | and [place] | + + + | Organization | [facility] | | | and [place] [...] Team Providers + +------+ + | Care Carburetor Rebuilder Name | Role | Phone | + +------+ + | Charly Carrillo MD | PCP | | + +------+ + Encounter Details +--------+ + + + + | Date | Type | Department | Care Team | Description | +--------+ + + + + | 07/14/ | Orders Only | [facility] [place] | Kain Lindo MD | Lumbar radiculopathy | | 2018 | | NEUROSURGERY [address] | [address] | (Primary Dx); DDD | | | | [address] | [address] [place], [place] | (degenerative disc | | | | [place], [place] | [address] | disease), lumbar, | | | | [address] | | L3-L4,L5-S1; Lumbar | | | | [phone] | | pars defect at L5 | [...] L4-5, L5-S1 | | | | | [address] | | | | | | | [...] | | | | | [address] [place], [place] | | | | | | [address] | | | | | | | [...] signed: 08/25/2017 10:02 AM | + + CBC with Differential (08/25/2017 0942) + +-------+ + | Component | Value [...] | + + + | Blood | [facility] [address] | | | [place] [address] | + + + Basic Metabolic Panel (08/25/2017941) + + + + | Component | [...] GLOMERULAR FILTRATION | >=60 mL/min/1.73m2 | | GREENLANDIC | RATE,ESTIMATED mL/min/1.66c5Orhi than | | | | 60 Chronic [...] + + + | Blood | [facility] [address] | | | [place] [address] | + + + ECG 12 lead [...] | | | | MARIO ALBERTO LANGLEY ([id number]) on 08/26/2017 7:12:44 AM | | | |Confirmed by MARIO ALBERTO FIGUEROA MD ([id number]) on 08/26/2017 7:12:44 AM | | | [...]
--- OUTSIDE RECORDS SUMMARY | ~2017-09-05 | XMS | Encounter Summary ---
Demographics + + + | Address | [address] | | | [place] [address] | + + + | Home Phone | | + + + | Preferred Language | Unknown | + + + | Marital Status | | + + + | Mandaen Affiliation | 1069 | + + + | Race | Unknown | + + + | Ethnic Group | Unknown | + + + Author + + + | Author | [facility] | | | and [place] | + + + | Organization | [facility] | | | and [place] [...] Team Providers + +------+ + | Care Fraud Manager Name | Role | Phone | [...] | (degenerative disc | | | | [place], [place] | [address] | disease), lumbar, | | | | [address] | | L3-L4,L5-S1; Lumbar | | | | [phone] | | pars defect at L5 | [...] L4-5, L5-S1 | | | | | [address] | | | | | | | [...] [place] | | | | | | [address] | | | | | | | [...] | + + + | Blood | [facility] [address] | | | [place] [address] | + + + Basic Metabolic Panel [...] GLOMERULAR FILTRATION | >=60 mL/min/1.73m2 | | QATARI | RATE,ESTIMATED mL/min/1.74p6Tyeh than | | | | 60 Chronic [...] + + + | Blood | [facility] [address] | | | [place] [address] | + + + ECG 12 lead [...] | | | | MARIO ALBERTO LANGLEY ([id number]) on 08/26/2017 7:12:44 AM | | | |Confirmed by MARIO ALBERTO FIGUEROA MD ([id number]) on 08/26/2017 7:12:44 AM | | | [...]
--- OUTSIDE RECORDS SUMMARY | ~2017-09-05 | XMS | Encounter Summary ---
Demographics + + + | Address | [address] | | | [place] [address] | + + + | Home Phone | | + + + | Preferred Language | Unknown | + + + | Marital Status | | + + + | Oriental Orthodox Affiliation | 1069 | + + + | Race | Unknown | + + + | Ethnic Group | Unknown | + + + Author + + + | Author | [facility] | | | and [place] | + + + | Organization | [facility] | | | and [place] | [...] Team Providers + +------+ + | Care Medical Laboratory Technical Officer Name | Role | Phone | [...] [address] | [address] [place], [place] | | | | | [place], [place] | [address] | | | | | [address] | | | | | | [phone] | | | +--------+ + + + [...] L4-5, L5-S1 | | | | | [address] | | | | | | | [...] [place] | | | | | | [address] | | | | | | | | +--------+ + + + + as of this encounter Visit Diagnoses Not on filein this encounter"
--- OUTSIDE RECORDS SUMMARY | ~2017-09-05 | XMS | Encounter Summary ---
Demographics + + + | Address | [address] | | | [place] [address] | + + + | Home Phone | | + + + | Preferred Language | Unknown | + + + | Marital Status | | + + + | Jain Affiliation | 1069 | + + + | Race | Unknown | + + + | Ethnic Group | Unknown | + + + Author + + + | Author | [facility] | | | and [place] | + + + | Organization | [facility] | | | and [...] Team Providers + +------+ + | Care Warehouse Order Picker Name | Role | Phone | + [...] + + | 07/13/ | Telephone | [facility] | Kain Lindo MD | Surgery Appointment | | 2017 | | NEUROSURGERY [address] | [address] | (called to schedule | | | | [address] | [address] [place] | surgery) | | | | [place] | [address] | | | | | [address] | | | | | | [phone] | | | +--------+ + + + [...] L4-5, L5-S1 | | | | | [address] | | | | | | | [...] [place] | | | | | | [address] | | | | | | | | +--------+ + + + + as of this encounter Visit Diagnoses Not on filein this encounter"
--- OUTSIDE RECORDS SUMMARY | ~2017-09-05 | XMS | Encounter Summary ---
Demographics + + + | Address | [address] | | | [place] [address] | + + + | Home Phone | | + + + | Preferred Language | Unknown | + + + | Marital Status | | + + + | Methodist Affiliation | 1069 | + + + | Race | Unknown | + + + | Ethnic Group | Unknown | + + + Author + + + | Author | [facility] | | | and [place] | + + + | Organization | [facility] | | | and [place] | [...] Team Providers + +------+ + | Care Grain Broker And Market Operator Name | Role | Phone | + [...] | | | | | | | CO LUMBAR | | | | | | | SPINE | | | | | | | FUSION,ANTER | | | | | | | APPRCH CO | | | | | | | [...] | | | | | | SEGMENTS CO | | | | | | | INSJ | | | | | | | BIOMCHN DEV | | | | | | | INTERVERTEBR | | | | | | | AL DSC SPC | | | | | | | W/ARTHRD CO | | | | | | | INSJ | | | | | | | BIOMCHN DEV | | | | | | | INTERVERTEBR | | | | | | | AL DSC SPC | | | | | | | W/ARTHRD CO | | | | | | | ARTHRODESIS | | | | | | | | | | | | | | POSTERIOR/PO | | | | | | | STEROLATERAL | | | | | | | LUMBAR CO | | | | | | | SPINE | | | | | | | FUSN,POST | | | | | | | TECH,EA | | | | | | | ADDNL SGMT | | | | | | | CO SPINE | | | | | | [...] + + | 09/08/ | Hospital | [facility] | Kain Lindo MD | | | 2018 | Encounter | MED CTR OR INTRA OP | [address] | | | | | [address] | [address] [place] | | | | | [place] | [address] | | | | | [address] | | | | | | [phone] | | | +--------+ + + + [...] L4-5, L5-S1 | | | | | [address] | | | | | | | [...] [place] | | | | | | [address] | | | | | | | [...]
--- OUTSIDE RECORDS SUMMARY | ~2017-09-05 | XMS | Encounter Summary ---
Demographics + + + | Address | [address] | | | [place] [address] | + + + | Home Phone [...] + | Organization | [facility] | | [...] Team Providers + +------+ + | Care Estimate Clerk Name | Role | Phone | [...] | | | e disc | [place] [address] | [place] [address] | | | | | disease), | Phone: | Phone: | | | | | lumbar | [phone] | [phone] | | | | | Lumbar pars | Fax: | Fax: | | | | | defect | [phone] | [phone] | | | | | Spondylolist | [...] + + | 08/18/ | Office | [facility] | Kain Lindo MD | Lumbar radiculopathy | | 2018 | Visit | SURGERY [address] | [address] | (Primary Dx); DDD | | | | [place], [place] | [address] [place], [place] | (degenerative disc | | | | [address] | [address] | disease), lumbar; | | | | [phone] | | Lumbar pars defect; | | | | | Harrison Chung I, | Spondylolisthesis of | | | | | , FACS [address] | lumbar region; | | | | | [place], [place] | 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 CARDIAC: Denies CT, chest pain or tightness. RISK: Former smoker [...] Mild high T2 signal in the central shah [...] Right sometime after 2003 with mesh - [facility]. 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 Argelia Downs CMA 08/18/17 I, Harrison Chung MD, FACS, personally performed the services described in this docume ntation, as scribed by Argelia Downs CMA in my presence, and it is both accurate and complet e. Argelia B. Ines, CONVENIENCE STORE CLERK 08/18/2017 11:08 CC: Charly Carrillo MD, Kain [...] L4-5, L5-S1 | | | | | [id number] | | | | | | | | +--------+ + + + + | 09/08/ | Procedure | | | | | 2017 | Pass | | | | +--------+ + + + + | 09/08/ | Hospital | | Kain Lindo MD | | | 2017 | Encounter | | [address] [facility] | | | | | | [address] [place] | | | | | | [address] | | | | | | | [...]
--- OUTSIDE RECORDS SUMMARY | ~2017-09-05 | XMS | Encounter Summary ---
Demographics + + + | Address | [address] | | | [place] [address] | + + + | Home Phone | | + + + | Preferred Language | Unknown | + + + | Marital Status | | + + + | Hoahaoism Affiliation | 1069 | + + + | Race | Unknown | + + + | Ethnic Group | Unknown | + + + Author + + + | Author | [facility] | | | and [place] | + + + | Organization | [facility] | | | and [place] [...] Team Providers + +------+ + | Care Wind Turbine Design Engineer Name | Role | Phone | + +------+ + | Charly Carrillo MD | PCP | | + +------+ + Encounter Details +--------+ + + + + | Date | Type | Department | Care Team | Description | +--------+ + + + + | 08/17/ | Abstract | [facility] | Provider, | | | 2017 | | SURGERY [address] | MD [address] | | | | [address] [place], [place] | [place] | | | | | [address] | [facility] [address] | | | | | [phone] | | | +--------+ + + + [...] L4-5, L5-S1 | | | | | [address] | | | | | | | | +--------+ + + + + | 04/25/ | Procedure | | | | | 2017 | Pass | | | | +--------+ + + + + | 09/08/ | Hospital | | Kain Lindo MD | | | 2017 | Encounter | | [address] [facility] | | | | | | [address] [place] | | | | | | [address] | | | | | | | | +--------+ + + + + as of this encounter Visit Diagnoses Not on filein this encounter"
--- OUTSIDE RECORDS SUMMARY | ~2017-09-05 | XMS | Encounter Summary ---
Demographics + + + | Address | [address] | | | [place] [address] | + + + | Home Phone [...] + + + | Author | [facility] | | | and [place] | + + + | Organization | [facility] | | | and [place] [...] Team Providers + +------+ + | Care Print And Pattern Designer Name | Role | Phone | + +------+ + | Charly Carrillo MD | PCP | | + +------+ + Encounter Details +--------+ + + + + | Date | Type | Department | Care Team | Description | +--------+ + + + + | 08/17/ | Abstract | [facility] | Provider, | | | 2017 | | SURGERY [address] | MD [address] | | | | | [address] [place], [place] | [place] | | | | | [address] | [facility] [address] | | | | | [phone] | | | +--------+ + + + [...] L4-5, L5-S1 | | | | | [address] | | | | | | | | +--------+ + + + + | 04/25/ | Procedure | | | | | 2017 | Pass | | | | +--------+ + + + + | 09/08/ | Hospital | | Kain Lindo MD | | | 2017 | Encounter | | [address] [facility] | | | | | | [address] [place] | | | | | | [address] | | | | | | | | +--------+ + + + + as of this encounter Visit Diagnoses Not on filein this encounter"
--- OUTSIDE RECORDS SUMMARY | ~2017-09-05 | XMS | Encounter Summary ---
Demographics + + + | Address | [address] | | | [place] [address] | + + + | Home Phone | | + + + | Preferred Language | Unknown | + + + | Marital Status | | + + + | Sabianism Affiliation | 1069 | + + + | Race | Unknown | + + + | Ethnic Group | Unknown | + + + Author + + + | Author | [facility] | | | and [place] | + + + | Organization | [facility] | | | and [place] [...] Providers + +------+ + | Care Machine Rope Maker Name | Role | Phone | + [...] [place] | | | | | | [address] | | | | | | [phone] | | | +--------+ + + + [...] | 2017 | | | [address] [facility] [address] | Posterior Fusion at | | | | | [address] [place] | L4-5, L5-S1 | | | | | [address] | | | | | | | | +--------+ + + + + | 09/08/ | Procedure | | | | | 2017 | Pass | | | | +--------+ + + + + | 09/08/ | Hospital | | Kain Lindo MD | | | 2017 | Encounter | | [address] [facility] | | | | | | [address] [place] | | | | | | [address] | | | | | | | | +--------+ + + + + as of this encounter Visit Diagnoses Not on filein this encounter"
--- OUTSIDE RECORDS SUMMARY | ~2017-09-05 | XMS | Encounter Summary ---
Demographics + + + | Address | [address] | | | [place] [address] | + + + | Home Phone | | + + + | Preferred Language | Unknown | + + + | Marital Status | | + + + | Moravian Affiliation | 1069 | + + + | Race | Unknown | + + + | Ethnic Group | Unknown | + + + Author + + + | Author | [facility] | | | and [place] | + + + | Organization | [facility] | | | and [...] Team Providers + +------+ + | Care Drywall Mechanic Name | Role | Phone | + [...] [place] | | | | | | [address] | | | | | | [phone] | | | +--------+ + + + [...] | 2017 | | | [address] [facility] [address] | Posterior Fusion at | | | | | [address] [place] | L4-5, L5-S1 | | | | | [address] | | | | | | | | +--------+ + + + + | 09/08/ | Procedure | | | | | 2017 | Pass | | | | +--------+ + + + + | 09/08/ | Hospital | | Kain Lindo MD | | | 2017 | Encounter | | [address] [facility] | | | | | | [address] [place] [place] | | | | | | [address] | | | | | | | | +--------+ + + + + as of this encounter Visit Diagnoses Not on filein this encounter"
--- OUTSIDE RECORDS SUMMARY | ~2017-09-05 | XMS | Encounter Summary ---
Demographics + + + | Address | [address] | | | [place] [address] | + + + | Home Phone | | + + + | Preferred Language | Unknown | + + + | Marital Status | | + + + | Hindu Affiliation | 1069 | + + + | Race | Unknown | + + + | Ethnic Group | Unknown | + + + Author + + + | Author | [facility] | | | and [place] | + + + | Organization | [facility] | | | and [...] Team Providers + +------+ + | Care Lease Administration Analyst Name | Role | Phone | + [...] [place] | | | | | | [address] | | | | | | [phone] | | | +--------+ + + + [...] 2017 | | | [address] [facility] [address] | Posterior Fusion at | | | | | [address] [place] | L4-5, L5-S1 | | | | | [address] | | | | | | | | +--------+ + + + + | 09/08/ | Procedure | | | | | 2017 | Pass | | | | +--------+ + + + + | 09/08/ | Hospital | | Kain Lindo MD | | | 2017 | Encounter | | [address] [facility] | | | | | | [address] [place] [place] | | | | | | [address] | | | | | | | | +--------+ + + + + as of this encounter Visit Diagnoses Not on filein this encounter"
--- OUTSIDE RECORDS SUMMARY | ~2017-09-05 | XMS | Encounter Summary ---
Demographics + + + | Address | [address] | | | [place] [address] | + + + | Home Phone | | + + + | Preferred Language | Unknown | + + + | Marital Status | | + + + | Rastafarian Affiliation | 1069 | + + + | Race | Unknown | + + + | Ethnic Group | Unknown | + + + Author + + + | Author | [facility] | | | and [place] | + + + | Organization | [facility] | | | and [place] | [...] Team Providers + +------+ + | Care Associate Application Developer Name | Role | Phone | + [...] | Changes | NEUROSURGERY [address] | Printing Film Stripper | | | | | [address] | | | | | | [place] | | | | | | [address] | | | | | | [phone] | | | +--------+ + + + [...] L4-5, L5-S1 | | | | | [address] | | | | | | | | +--------+ + + + + | 04/25/ | Procedure | | | | | 2017 | Pass | | | | +--------+ + + + + | 09/08/ | Hospital | | Kain Lindo MD | | | 2017 | Encounter | | [address] [facility] | | | | | | [address] [place] [place] | | | | | | [address] | | | | | | | | +--------+ + + + + as of this encounter Visit Diagnoses Not on filein this encounter"
[2017-09-05] MEDS ORDERED: CYCLOBENZAPRINE5 MG PO (15:51)
--- NOTE | 2017-09-06 06:53 | EKG ---
[facility] [address] [facility] [place] [address] Signed Normal sinus rhythm Normal ECG No previous ECGs available Confirmed by GURDEEP GUERRA MD ([id number]) on 09/06/2017 6:53:03 AM Electronically Signed By: GURDEEP GUERRA MD 09/06/17 0653 PATIENT NAME: KAREEM RODRIGUEZ Electrocardiogram DATE OF : 65 PHYSICIAN: GURDEEP GUERRA MD REPORT #: [id number] REPORT IS CONFIDENTIAL AND NOT TO BE RELEASED WITHOUT AUTHORIZATION
== END 2017-09-05 16:09 | disposition home or self-care (01) ==
LOC: ED 14:02
DX: R07.89 Other chest pain (principal)
CPT/HCPCS: 71045; 80053; 84484; 85025; 85379; 85610; 93005; 93010; 99284